=== PATIENT | female | born 1995 | race African-American/Black ===

== ENCOUNTER 2020-10-29 14:57 | Inpatient (IN) | payer OTHER ==
[~2020-10-29] VITALS: Ht 152.4 cm; Wt 81.6 kg
[~2020-10-29 14:57] MED LIST: ZOFRAN4 MG PO
--- NOTE | 2020-10-29 19:16 | NUR ---
SWABBED BOTH NARES FOR RAPID COVID TEST. FULL PPE DONNED
[2020-10-29] MEDS ORDERED: PRENATAL VITAM1 EAC2 PO (20:45)
--- NOTE | 2020-10-30 02:44 | PR ---
[facility] [address] [facility] [place], [place] [address] Signed Progress Notes IP Datetime Report Generated by CPN: 10/30/2020 02:43 PROGRESS NOTES: [id number] Impression: Reassuring Heart Rate Other Impressions: slow progress Procedures: Artificial ROM; Sterile Vag Exam Plan: Continue Present Management VITAL SIGNS: [id number] Vital Signs: Reviewed; Within Normal Limits EXAM: [id number] Dilatation: 3.0 Effacement: 60 Station: -2 MEMBRANES: [id number] Comments: Progressing. Will continue with pit augmentation. status reassuring at this time FETUS A: [id number] FHR Baseline: 140 Variability: Moderate 6-25bpm Accelerations: 10X10 Decelerations: Variable FHR Category: Category II Presentation: Vertex Comments on Fetus A: multiple short variables FETUS B: [id number] Signing Physician: Cece Fields MD Copies: ~ *Electronically Signed* 10/30/20 0243 CECE FIELDS MD PATIENT NAME: FRANK BARRETO PROGRESS NOTE DATE OF : 89 PHYSICIAN: CECE FIELDS MD RPT #: [id number] REPORT IS CONFIDENTIAL AND NOT TO BE RELEASED WITHOUT AUTHORIZATION
--- NOTE | 2020-10-31 08:28 | PR ---
[facility] [address] [facility] [place], [place] [address] Signed PP Progress Notes Datetime Report Generated by CPN: 10/31/2020 08:28 SUBJECTIVE: [id number] Pain: Within Normal Limits Vital Signs: [id number] Vital Signs: Reviewed; Within Normal Limits EXAM: Ongoing Cardiovascular: Not Done Respiratory: Not Done Abdomen/Uterus: Abnormal Lochia: Normal Vulva/Perineum: Not Done Breasts: Not Done CVA Tenderness: Not Done Extremities: Normal Incision: Not Applicable Progress: Normal Exam Comments: Fundus firm, NT @ U. H/H 9.8/29.4, WBC 12, plat 162k IMPRESSION/PLAN/PROCEDURES: [id number] Impression: Normal Progression Plan: Discharge Procedures: None Progress Notes: Doing well. She desires D/C. Signing Physician: Cece Fields MD Copies: ~ *Electronically Signed* 10/31/20827 CECE FIELDS MD PATIENT NAME: FRANK BARRETO PROGRESS NOTE DATE OF : [birth year] PHYSICIAN: CECE FIELDS MD RPT #: [id number] REPORT IS CONFIDENTIAL AND NOT TO BE RELEASED WITHOUT AUTHORIZATION
== END 2020-10-31 10:38 | disposition home or self-care (01) | DRG 807 ==
LOC: FBCO 14:57 → FBC 18:40
PROVIDERS: ADMIT Obstetrics & Gynecology; ATTEND Obstetrics & Gynecology
PROC: 00HU33Z Insertion of Infusion Device into Spinal Canal, Percutaneous Approach (ICD-10-PCS; 2020-10-29)
PROC: 3E0R3BZ Introduction of Anesthetic Agent into Spinal Canal, Percutaneous Approach (ICD-10-PCS; 2020-10-29)
PROC: 10E0XZZ Delivery of Products of Conception, External Approach (ICD-10-PCS; principal; 2020-10-30)
PROC: 0UQMXZZ Repair Vulva, External Approach (ICD-10-PCS; 2020-10-30)
PROC: 10907ZC Drainage of Amniotic Fluid, Therapeutic from Products of Conception, Via Natural or Artificial Opening (ICD-10-PCS; 2020-10-30)
DX: O76 Abnormality in fetal heart rate and rhythm complicating labor and delivery (principal); Z37.0 Single live birth; O99.214 Obesity complicating childbirth; E66.9 Obesity, unspecified; O71.82 Other specified trauma to perineum and vulva; Z3A.38 38 weeks gestation of pregnancy; Z88.0 Allergy status to penicillin
CPT/HCPCS: 36415; 76818; 85027; A9270; C9803; J2590; J2795; J7121; U0003

== ENCOUNTER 2021-01-20 19:45 | Emergency (ER) | payer OTHER ==
[~2021-01-20] VITALS: Ht 152.4 cm; Wt 81.6 kg
[~2021-01-20 19:45] MED LIST changes: +PRENATAL VITAM1 EAC2 PO
== END 2021-01-20 20:43 | disposition home or self-care (01) ==
LOC: ED 19:45
DX: Z48.816 Encounter for surgical aftercare following surgery on the genitourinary system (principal); Z98.51 Tubal ligation status; Z88.0 Allergy status to penicillin
CPT/HCPCS: 99283

== ENCOUNTER 2021-07-26 10:02 | Emergency (ER) | payer OTHER ==
[~2021-07-26] VITALS: Ht 152.4 cm; Wt 78.0 kg
== END 2021-07-26 12:33 | disposition home or self-care (01) ==
LOC: ED 10:02
DX: R10.2 Pelvic and perineal pain (principal); Z88.0 Allergy status to penicillin
CPT/HCPCS: 76830; 76856; 80053; 81001; 84703; 85025; 96374; 99284-25; J1885

== ENCOUNTER 2022-03-06 05:14 | Emergency (ER) | payer OTHER ==
[~2022-03-06] VITALS: Ht 152.4 cm; Wt 78.0 kg
[2022-03-06] MEDS ORDERED: FLUOXETINE HCL20 MG PO (05:25)
== END 2022-03-06 06:50 | disposition home or self-care (01) ==
LOC: ED 05:14
DX: R10.9 Unspecified abdominal pain (principal); Z88.0 Allergy status to penicillin; Z79.899 Other long term (current) drug therapy
CPT/HCPCS: 36415; 80053; 81001; 83690; 83735; 84703; 85025; 99284

== ENCOUNTER 2022-04-13 10:58 | Emergency (ER) | payer OTHER ==
[~2022-04-13] VITALS: Ht 152.4 cm; Wt 78.0 kg
[~2022-04-13 10:58] MED LIST changes: +FLUOXETINE HCL20 MG PO
== END 2022-04-13 13:31 | disposition home or self-care (01) ==
LOC: ED 10:58
DX: H61.21 Impacted cerumen, right ear (principal); Z88.0 Allergy status to penicillin; Z79.899 Other long term (current) drug therapy
CPT/HCPCS: 69210; 99282-25

== ENCOUNTER 2022-08-09 15:33 | Emergency (ER) | payer OTHER ==
[~2022-08-09] VITALS: Ht 152.4 cm; Wt 79.8 kg
[2022-08-09] MEDS ORDERED: TYLOPHEN500 MG PO (16:30)
[2022-08-09] MEDS ORDERED: BACTRIM DS TAB1 EACH PO (19:35)
[2022-08-09] MEDS ORDERED: PYRIDIUM200 MG PO (19:35)
[2022-08-10] MEDS ORDERED: ONDANSETRON ODT4 MG PO (17:38)
== END 2022-08-09 20:47 | disposition home or self-care (01) ==
LOC: ED 15:33
DX: N12 Tubulo-interstitial nephritis, not specified as acute or chronic (principal); Z88.0 Allergy status to penicillin
CPT/HCPCS: 36415; 71045; 74177; 80053; 81001; 83605; 84703; 85025; 87040; 87088; 87186; 96361; 96365; 96375; 99284-25; J0696; J1885; J2270; J2405; J7030; Q9967

== ENCOUNTER 2022-08-10 12:18 | Emergency (ER) | payer OTHER ==
[~2022-08-10] VITALS: Ht 152.4 cm; Wt 79.6 kg
[~2022-08-10 12:18] MED LIST changes: +BACTRIM DS TAB1 EACH PO; +PYRIDIUM200 MG PO; +TYLOPHEN500 MG PO
--- OUTSIDE RECORDS SUMMARY | 2022-08-10 12:26 | XMS ---
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 - 2 Visits in 30 Days CARE PROVIDERS LEIGHANN VICTORIA Physician 08/08/2021-Current PHONE: Unknown Jocelyne has no Care Guidelines for this patient. Javier VISIT COUNT (12 MO.) 4 [facility] TOTAL 4 NOTE: Visits indicate total known visits. 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
[2022-08-10] MEDS ORDERED: ONDANSETRON ODT4 MG PO (17:38)
== END 2022-08-10 17:50 | disposition home or self-care (01) ==
LOC: ED 12:18
DX: N12 Tubulo-interstitial nephritis, not specified as acute or chronic (principal); R11.2 Nausea with vomiting, unspecified; Z88.0 Allergy status to penicillin; Z79.899 Other long term (current) drug therapy
CPT/HCPCS: 36415; 80053; 83605; 85025; 85060; 96361; 96374; 96375; 99284-25; J0696; J1885; J2405; J7030

== ENCOUNTER 2022-08-12 17:33 | Emergency (ER) | payer OTHER ==
[~2022-08-12] VITALS: Ht 152.4 cm; Wt 79.4 kg
[~2022-08-12 17:33] MED LIST changes: +ONDANSETRON ODT4 MG PO
--- OUTSIDE RECORDS SUMMARY | 2022-08-12 17:40 | XMS ---
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 Javier VISIT COUNT (12 MO.) 5 [facility] TOTAL 5 NOTE: Visits indicate total known visits. ED/UCC VISIT TRACKING (12 MO.) 08/12/2022 17:33 [facility] TYPE: Emergency COMPLAINT: - SHORTNESS OF BREATH 08/10/2022 12:19 [facility] TYPE: Emergency COMPLAINT: - VOMITING 08/09/2022 15:34 [facility] TYPE: Emergency COMPLAINT: - ABDOMINAL PAIN 04/13/2022 10:59 [facility] TYPE: Emergency COMPLAINT: - EAR PROBLEM DIAGNOSES: - Impacted cerumen, right ear - Otalgia, right ear - Other alf (current) drug therapy - Allergy status to penicillin 03/06/2022 05:15 [facility] [place] TYPE: Emergency COMPLAINT: - ABD PAIN DIAGNOSES: - Allergy status to penicillin - Unspecified abdominal pain - 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
== END 2022-08-12 20:12 | disposition left against medical advice (07) ==
LOC: ED 17:33
DX: Z53.21 Procedure and treatment not carried out due to patient leaving prior to being seen by health care provider (principal)
CPT/HCPCS: 99281

== ENCOUNTER 2022-10-18 15:12 | Emergency (ER) | payer OTHER ==
[~2022-10-18] VITALS: Ht 152.4 cm; Wt 79.4 kg
[2022-10-18] MEDS ORDERED: FLUOXETINE HCL20 MG PO (18:04)
[2022-10-18] MEDS ORDERED: ONDANSETRON ODT4 MG PO (18:10)
== END 2022-10-18 18:26 | disposition home or self-care (01) ==
LOC: ED 15:12
DX: J10.1 Influenza due to other identified influenza virus with other respiratory manifestations (principal); Z20.822 Contact with and (suspected) exposure to COVID-19; Z88.0 Allergy status to penicillin; Z79.899 Other long term (current) drug therapy
CPT/HCPCS: 87502; 99283; U0003

== ENCOUNTER 2023-05-19 15:39 | Emergency (ER) | payer OTHER ==
[~2023-05-19] VITALS: Ht 152.4 cm; Wt 70.3 kg
--- OUTSIDE RECORDS SUMMARY | ~2023-05-19 | XMS | Continuity of Care Document ---
Demographics + + + | Address | [address] | | | [place] [address] | + + + | Preferred Language | Unknown | + + + | Marital Status | | + + + | Anabaptist Affiliation | Unknown | + + + | Race | Unknown | + + + | Ethnic Group | Not or | + + + Author + + + | Author | [facility] | + + + | Organization | [facility] | + + + | Address | [address] | | | [place] [address] | + + + | Phone | | + + + Care Team Providers + + + + | Care Belt Cleaner Name | Role | Phone | + + + + Unavailable | Unavailable | + + + + Unavailable | Unavailable | + + + + Allergies and Intolerances + + + + + | date | description | facility | type | + + + + + | (no date) | Amoxicillin | [facility] (unknown[facility] | | + + + + + | (no date) | Amoxicillin | [facility] (unknown[facility] | | + + + + + | (no date) | Amoxicillin | [facility] (unknown) [facility] | | | [facility] | | + + + + + Encounters No information. Functional Status No information. Immunizations No information. Medications + + + + | date | description | facility | + + + + | 2022-08-10 00:00 | ONDANSETRON | [facility] | + + + + | 2022-10-18 00:00 | ONDANSETRON | [facility] | + + + + | 2019-12-15 00:00 | ONDANSETRON HCL | [facility] | + + + + | 2022-08-09 00:00 | PHENAZOPYRIDINE HCL | [facility] | + + + + | 2022-08-09 00:00 | ACETAMINOPHEN | [facility] | + + + + | 2022-08-10 00:00 | ACETAMINOPHEN | [facility] | + + + + | 2022-08-12 00:00 | ACETAMINOPHEN | [facility] | + + + + | 2022-08-09 00:00 | FLUOXETINE HCL | [facility] | + + + + | 2022-08-10 00:00 | FLUOXETINE HCL | [facility] | + + + + | 2022-08-12 00:00 | FLUOXETINE HCL | [facility] | + + + + | 2022-10-19 00:00 | FLUOXETINE HCL | [facility] | + + + + | 2022-11-18 00:00 | FLUOXETINE HCL | [facility] | + + + + | 2022-11-18 00:00 | ONDANSETRON | [facility] | + + + + | 2022-11-18 00:00 | NITROFURANTOIN MONOHYD | [facility] | | | MACROCR | | + + + + | 2022-08-09 00:00 | | [facility] | | | SULFAMETHOXAZOLE/TRIMETHOPR | | | | IM DS | | + + + + Problems + + + + | date | description | facility | + + + + | 2019-12-15 00:00 | Gastroenteritis | [facility] | + + + + | 2019-12-15 00:00 | Abdominal pain | [facility] | + + + + | 2021-01-20 00:00 | Encounter for | [facility] | | | postoperative wound check | | + + + + | 2021-07-26 00:00 | Acute pelvic pain | [facility] | + + + + | 2021-08-07 00:00 | Patient left without being | [facility] | | | seen | | + + + + | 2022-04-13 00:00 | Impacted cerumen | [facility] | + + + + | 2022-08-09 00:00 | Pyelonephritis | [facility] | + + + + | 2022-10-18 00:00 | Influenza due to influenza | [facility] | | | virus, type A, human | | + + + + | 2022-11-18 00:00 | Urinary tract infection | [facility] | + + + + Procedures No information. Results/Labs +--------+--------+ + +---------+--------+ + | test | date | author | facility | value | unit | | | | | | | | | interpreta | | | | | | | | tion | +--------+--------+ + +---------+--------+ + + + | Result panel 1 | + + + + + + +---------+ + + | (unknown) | (no date) | (unknown) | [facility] | (no | (units | (unknown) | | | [facility] | [facility] | | | | + + + + +---------+ + + + + | Result panel 2 | + + + + + + +---------+ + + | (unknown) | (no date) | (unknown) | [facility] | (no | (units | (unknown) | | | | [facility] | value) | [facility]) | | | [facility] | | | | + + + + +---------+ + + + + | Result panel 3 | + + + + + + +---------+ + + | (unknown) | (no date) | (unknown) | [facility] | (no | (units | (unknown) | | | | [facility] | value) | unknown) | | | | [facility] | | | | + + + + +---------+ + + + + | Result panel 4 | + + + + + + +---------+ + + | (unknown) | (no date) | (unknown) | [facility] | (no | (units | (unknown) | | | | [facility] | value) | unknown) | | | [facility] | | | | + + + + +---------+ + + + + | Result panel 5 | + + + + + + +---------+ + + | (unknown) | (no date) | (unknown) | [facility] | (no | (units | (unknown) | | | | [facility] | value) | unknown) | | | [facility] | | | | + + + + +---------+ + + + + | Result panel 6 | + + + + + + +---------+ + + | (unknown) | (no date) | (unknown) | [facility] | (no | (units | (unknown) | | | | [facility] | value) | unknown) | | | [facility] | | | | + + + + +---------+ + + + + | Result panel 7 | + + + + + + +---------+ + + | (unknown) | (no date) | (unknown) | [facility] | (no | (units | (unknown) | | | | [facility] | value) | [facility]) | | [facility] | | | | + + + + +---------+ + + + + | Result panel 8 | + + + + + + +---------+ + + | (unknown) | (no date) | (unknown) | [facility] | (no | (units | (unknown) | | | | [facility] | value) | [facility]) | | [facility] | | | | + + + + +---------+ + + + + | Result panel 9 | + + + + + + +---------+ + + | (unknown) | (no date) | (unknown) | [facility] | (no | (units | (unknown) | | [facility] | [facility] value) | [facility]) | | | [facility] | | | | + + + + +---------+ + + + + | Result panel 10 | + + + + + + +---------+ + + | (unknown) | (no date) | (unknown) | [facility] | (no | (units | (unknown) | | | | [facility] | value) | [facility]) | | | [facility] | | | | + + + + +---------+ + + + + | Result panel 11 | + + + + + + +---------+ + + | (unknown) | (no date) | (unknown) | [facility] | (no | (units | (unknown) | | | | [facility] | value) | unknown) | | | [facility] | | | | + + + + +---------+ + + + + | Result panel 12 | + + + + + + +---------+ + + | (unknown) | (no date) | (unknown) | [facility] | (no | (units | (unknown) | | | | [facility] value) | unknown) | | | [facility] | | | | + + + + +---------+ + + + + | Result panel 13 | + + + + + + +---------+ + + | (unknown) | (no date) | (unknown) | [facility] | (no | (units | (unknown) | | | | [facility] value) | [facility]) | | | [facility] | | | | + + + + +---------+ + + + + | Result panel 14 | + + + + + + +---------+ + + | (unknown) | (no date) | (unknown) | [facility] | (no | (units | (unknown) | | [facility] | [facility] value) | [facility]) | | | [facility] | | | | + + + + +---------+ + + + + | Result panel 15 | + + + + + + +---------+ + + | (unknown) | (no date) | (unknown) | [facility] | (no | (units | (unknown) | | [facility] | [facility] | value) | [facility]) | | | [facility] | | | | + + + + +---------+ + + + + | Result panel 16 | + + + + + + +---------+ + + | (unknown) | (no date) | (unknown) | [facility] | (no | (units | (unknown) | | | | [facility] | value) | unknown) | | | [facility] | | | | + + + + +---------+ + + + + | Result panel 17 | + + + + + + +---------+ + + | (unknown) | (no date) | (unknown) | [facility] | (no | (units | (unknown) | | [facility] | [facility] value) | [facility]) | | | [facility] | | | | + + + + +---------+ + + + + | Result panel 18 | + + + + + + +---------+ + + | (unknown) | (no date) | (unknown) | [facility] | (no | (units | (unknown) | | | | [facility] | value) | [facility]) | | | [facility] | | | | + + + + +---------+ + + + + | Result panel 19 | + + + + + + +---------+ + + | (unknown) | (no date) | (unknown) | [facility] | (no | (units | (unknown) | | | | [facility] value) | [facility]) | | [facility] | | | | + + + + +---------+ + + + + | Result panel 20 | + + + + + + +---------+ + + | (unknown) | (no date) | (unknown) | [facility] | (no | (units | (unknown) | | [facility] | [facility] value) | [facility]) | | | [facility] | | | | + + + + +---------+ + + + + | Result panel 21 | + + + + + + +---------+ + + | (unknown) | (no date) | (unknown) | [facility] | (no | (units | (unknown) | | | | [facility] value) | [facility]) | | | [facility] | | | | + + + + +---------+ + + + + | Result panel 22 | + + + + + + +---------+ + + | (unknown) | (no date) | (unknown) | [facility] | (no | (units | (unknown) | | | | [facility] | value) | [facility]) | | | [facility] | | | | + + + + +---------+ + + + + | Result panel 23 | + + + + + + +---------+ + + | (unknown) | (no date) | (unknown) | [facility] | (no | (units | (unknown) | | | | [facility] | value) | unknown) | | | | [facility] | | | | + + + + +---------+ + + + + | Result panel 24 | + + + + + + +---------+ + + | (unknown) | (no date) | (unknown) | [facility] | (no | (units | (unknown) | | | | [facility] value) | [facility]) | | | | [facility] | | | | + + + + +---------+ + + + + | Result panel 25 | + + + + + + +---------+ + + | (unknown) | (no date) | (unknown) | [facility] | (no | (units | (unknown) | | | | [facility] | value) | unknown) | | | [facility] | | | | + + + + +---------+ + + + + | Result panel 26 | + + + + + + +---------+ + + | (unknown) | (no date) | (unknown) | [facility] | (no | (units | (unknown) | | | | [facility] value) | [facility]) | | [facility] | | | | + + + + +---------+ + + + + | Result panel 27 | + + + + + + +---------+ + + | (unknown) | (no date) | (unknown) | [facility] | (no | (units | (unknown) | | | | [facility] value) | unknown) | | | [facility] | | | | + + + + +---------+ + + + + | Result panel 28 | + + + + + + +---------+ + + | (unknown) | (no date) | (unknown) | [facility] | (no | (units | (unknown) | | [facility] | [facility] value) | [facility]) | | | [facility] | | | | + + + + +---------+ + + + + | Result panel 29 | + + + + + + +---------+ + + | (unknown) | (no date) | (unknown) | [facility] | (no | (units | (unknown) | | | | [facility] value) | unknown) | | | [facility] | | | | + + + + +---------+ + + + + | Result panel 30 | + + + + + + +---------+ + + | (unknown) | (no date) | (unknown) | [facility] | (no | (units | (unknown) | | | | [facility] value) | [facility]) | | | [facility] | | | | + + + + +---------+ + + + + | Result panel 31 | + + + + + + +---------+ + + | (unknown) | (no date) | (unknown) | [facility] | (no | (units | (unknown) | | | | [facility] | value) | [facility]) | | | [facility] | | | | + + + + +---------+ + + + + | Result panel 32 | + + + + + + +---------+ + + | (unknown) | (no date) | (unknown) | [facility] | (no | (units | (unknown) | | | | [facility] | value) | unknown) | | | | [facility] | | | | + + + + +---------+ + + + + | Result panel 33 | + + + + + + +---------+ + + | (unknown) | (no date) | (unknown) | [facility] | (no | (units | (unknown) | | | | [facility] value) | [facility]) | | | [facility] | | | | + + + + +---------+ + + + + | Result panel 34 | + + + + + + +---------+ + + | (unknown) | (no date) | (unknown) | [facility] | (no | (units | (unknown) | | | | [facility] value) | unknown) | | | | [facility] | | | | + + + + +---------+ + + + + | Result panel 35 | + + + + + + +---------+ + + | (unknown) | (no date) | (unknown) | [facility] | (no | (units | (unknown) | | | | [facility] | value) | unknown) | | | [facility] | | | | + + + + +---------+ + + + + | Result panel 36 | + + + + + + +---------+ + + | (unknown) | (no date) | (unknown) | [facility] | (no | (units | (unknown) | | | | [facility] | value) | unknown) | | | | [facility] | | | | + + + + +---------+ + + + + | Result panel 37 | + + + + + + +---------+ + + | (unknown) | (no date) | (unknown) | [facility] | (no | (units | (unknown) | | | | [facility] | value) | unknown) | | | | [facility] | | | | + + + + +---------+ + + + + | Result panel 38 | + + + + + + +---------+ + + | (unknown) | (no date) | (unknown) | [facility] | (no | (units | (unknown) | | | | [facility] | value) | unknown) | | | | [facility] | | | | + + + + +---------+ + + + + | Result panel 39 | + + + + + + +---------+ + + | (unknown) | (no date) | (unknown) | [facility] | (no | (units | (unknown) | | | | [facility] | value) | unknown) | | | | [facility] | | | | + + + + +---------+ + + + + | Result panel 40 | + + + + + + +---------+ + + | (unknown) | (no date) | (unknown) | [facility] | (no | (units | (unknown) | | | | [facility] value) | [facility]) | | | [facility] | | | | + + + + +---------+ + + + + | Result panel 41 | + + + + + + +---------+ + + | (unknown) | (no date) | (unknown) | [facility] | (no | (units | (unknown) | | | [facility] value) | unknown) | | | | [facility] | | | | + + + + +---------+ + + + + | Result panel 42 | + + + + + + +---------+ + + | (unknown) | (no date) | (unknown) | [facility] | (no | (units | (unknown) | | | [facility] value) | [facility]) | | | [facility] | | | | + + + + +---------+ + + + + | Result panel 43 | + + + + + + +---------+ + + | (unknown) | (no date) | (unknown) | [facility] | (no | (units | (unknown) | | | | [facility] | value) | unknown) | | | [facility] | | | | + + + + +---------+ + + + + | Result panel 44 | + + + + + + +---------+ + + | (unknown) | (no date) | (unknown) | [facility] | (no | (units | (unknown) | | | | [facility] | value) | unknown) | | | | [facility] | | | | + + + + +---------+ + + + + | Result panel 45 | + + + + + + +---------+ + + | (unknown) | (no date) | (unknown) | [facility] | (no | (units | (unknown) | | | | [facility] | value) | unknown) | | | | [facility] | | | | + + + + +---------+ + + + + | Result panel 46 | + + + + + + +---------+ + + | (unknown) | (no date) | (unknown) | [facility] | (no | (units | (unknown) | | | | [facility] | value) | unknown) | | | | [facility] | | | | + + + + +---------+ + + + + | Result panel 47 | + + + + + + +---------+ + + | (unknown) | (no date) | (unknown) | [facility] | (no | (units | (unknown) | | | | [facility] | value) | unknown) | | | | [facility] | | | | + + + + +---------+ + + + + | Result panel 48 | + + + + + + +---------+ + + | (unknown) | (no date) | (unknown) | [facility] | (no | (units | (unknown) | | | | [facility] | value) | unknown) | | | | [facility] | | | | + + + + +---------+ + + + + | Result panel 49 | + + + + + + +---------+ + + | (unknown) | (no date) | (unknown) | [facility] | (no | (units | (unknown) | | | | [facility] | value) | [facility]) | | [facility] | | | | + + + + +---------+ + + + + | Result panel 50 | + + + + + + +---------+ + + | (unknown) | (no date) | (unknown) | [facility] | (no | (units | (unknown) | | | | [facility] value) | [facility]) | | | [facility] | | | | + + + + +---------+ + + + + | Result panel 51 | + + + + + + +---------+ + + | (unknown) | (no date) | (unknown) | [facility] | (no | (units | (unknown) | | | | [facility] value) | [facility]) | | | [facility] | | | | + + + + +---------+ + + + + | Result panel 52 | + + + + + + +---------+ + + | (unknown) | (no date) | (unknown) | [facility] | (no | (units | (unknown) | | | | [facility] value) | [facility]) | [facility] | | | | + + + + +---------+ + + + + | Result panel 53 | + + + + + + +---------+ + + | (unknown) | (no date) | (unknown) | [facility] | (no | (units | (unknown) | | | | [facility] value) | [facility]) | [facility] | | | | + + + + +---------+ + + + + | Result panel 54 | + + + + + + +---------+ + + | (unknown) | (no date) | (unknown) | [facility] | (no | (units | (unknown) | | | [facility] value) | [facility]) | | | [facility] | | | | + + + + +---------+ + + + + | Result panel 55 | + + + + + + +---------+ + + | (unknown) | (no date) | (unknown) | [facility] | (no | (units | (unknown) | | | | [facility] value) | [facility]) | | [facility] | | | | + + + + +---------+ + + + + | Result panel 56 | + + + + + + +---------+ + + | (unknown) | (no date) | (unknown) | [facility] | (no | (units | (unknown) | | | [facility] value) | [facility]) | | [facility] | | | | + + + + +---------+ + + + + | Result panel 57 | + + + + + + +---------+ + + | (unknown) | (no date) | (unknown) | [facility] | (no | (units | (unknown) | [facility] value) | [facility]) | | [facility] | | | | + + + + +---------+ + + + + | Result panel 58 | + + + + + + +---------+ + + | (unknown) | (no date) | (unknown) | [facility] | (no | (units | (unknown) | | | [facility] value) | [facility]) | | [facility] | | | | + + + + +---------+ + + + + | Result panel 59 | + + + + + + +---------+ + + | (unknown) | (no date) | (unknown) | [facility] | (no | (units | (unknown) | | | [facility] value) | [facility]) | | | [facility] | | | | + + + + +---------+ + + + + | Result panel 60 | + + + + + + +---------+ + + | (unknown) | (no date) | (unknown) | [facility] | (no | (units | (unknown) | | [facility] value) | [facility]) | | | [facility] | | | | + + + + +---------+ + + + + | Result panel 61 | + + + + + + +---------+ + + | (unknown) | (no date) | (unknown) | [facility] | (no | (units | (unknown) | | | [facility] value) | [facility]) | | [facility] | | | | + + + + +---------+ + + + + | Result panel 62 | + + + + + + +---------+ + + | (unknown) | (no date) | (unknown) | [facility] | (no | (units | (unknown) | | | [facility] value) | [facility]) | | | | [facility] | | | | + + + + +---------+ + + + + | Result panel 63 | + + + + + + +---------+ + + | (unknown) | (no date) | (unknown) | [facility] | (no | (units | (unknown) | | | [facility] value) | [facility]) | | [facility] | [facility] | | | | + + + + +---------+ + + + + | Result panel 64 | + + + + + + +---------+ + + | (unknown) | (no date) | (unknown) | [facility] | (no | (units | (unknown) | | | [facility] | value) | unknown) | | | | [facility] | | | | + + + + +---------+ + + + + | Result panel 65 | + + + + + + +---------+ + + | (unknown) | (no date) | (unknown) | [facility] | (no | (units | (unknown) | | | | [facility] | value) | unknown) | | | | [facility] | | | | + + + + +---------+ + + + + | Result panel 66 | + + + + + + +---------+ + + | (unknown) | (no date) | (unknown) | [facility] | (no | (units | (unknown) | | [facility] value) | unknown) | | | | [facility] | | | | + + + + +---------+ + + + + | Result panel 67 | + + + + + + +---------+ + + | (unknown) | (no date) | (unknown) | [facility] | (no | (units | (unknown) | | | | [facility] | value) | unknown) | | | | [facility] | | | | + + + + +---------+ + + + + | Result panel 68 | + + + + + + +---------+ + + | (unknown) | (no date) | (unknown) | [facility] | (no | (units | (unknown) | | | | [facility] | value) | unknown) | | | | [facility] | | | | + + + + +---------+ + + + + | Result panel 69 | + + + + + + +---------+ + + | (unknown) | (no date) | (unknown) | [facility] | (no | (units | (unknown) | | [facility] | [facility] | value) | unknown) | | [facility] | [facility] | | | | + + + + +---------+ + + + + | Result panel 70 | + + + + + + +---------+ + + | (unknown) | (no date) | (unknown) | [facility] | (no | (units | (unknown) | | | [facility] | value) | unknown) | | | | [facility] | | | | + + + + +---------+ + + + + | Result panel 71 | + + + + + + +---------+ + + | (unknown) | (no date) | (unknown) | [facility] | (no | (units | (unknown) | | [facility] | value) | unknown) | | [facility] | [facility] | | | | + + + + +---------+ + + + + | Result panel 72 | + + + + + + +---------+ + + | (unknown) | (no date) | (unknown) | [facility] | (no | (units | (unknown) | | | [facility] value) | unknown) | | | | [facility] | | | | + + + + +---------+ + + + + | Result panel 73 | + + + + + + +---------+ + + | (unknown) | (no date) | (unknown) | [facility] | (no | (units | (unknown) | | | [facility] value) | unknown) | | [facility] | [facility] | | | | + + + + +---------+ + + + + | Result panel 74 | + + + + + + +---------+ + + | (unknown) | (no date) | (unknown) | [facility] | (no | (units | (unknown) | | | [facility] | value) | unknown) | | | | | [facility] | | | | + + + + +---------+ + + + + | Result panel 75 | + + + + + + +---------+ + + | (unknown) | (no date) | (unknown) | [facility] | (no | (units | (unknown) | | | | [facility] | value) | unknown) | | | | | [facility] | | | | + + + + +---------+ + + + + | Result panel 76 | + + + + + + +---------+ + + | (unknown) | (no date) | (unknown) | [facility] | (no | (units | (unknown) | | | [facility] | value) | unknown) | | | | [facility] | | | | + + + + +---------+ + + + + | Result panel 77 | + + + + + + +---------+ + + | (unknown) | (no date) | (unknown) | [facility] | (no | (units | (unknown) | | | [facility] value) | unknown) | | | | [facility] | | | | + + + + +---------+ + + + + | Result panel 78 | + + + + + + +---------+ + + | (unknown) | (no date) | (unknown) | [facility] | (no | (units | (unknown) | | | [facility] value) | unknown) | | | | [facility] | | | | + + + + +---------+ + + + + | Result panel 79 | + + + + + + +---------+ + + | (unknown) | (no date) | (unknown) | [facility] | (no | (units | (unknown) | | | [facility] | value) | unknown) | [facility] | | [facility] | | | | + + + + +---------+ + + + + | Result panel 80 | + + + + + + +---------+ + + | (unknown) | (no date) | (unknown) | [facility] | (no | (units | (unknown) | | | [facility] value) | unknown) | | | | [facility] | | | | + + + + +---------+ + + + + | Result panel 81 | + + + + + + +---------+ + + | (unknown) | (no date) | (unknown) | [facility] | (no | (units | (unknown) | | | [facility] value) | [facility]) | | | | [facility] | | | | + + + + +---------+ + + + + | Result panel 82 | + + + + + + +---------+ + + | (unknown) | (no date) | (unknown) | [facility] | (no | (units | (unknown) | | | [facility] value) | [facility]) | | [facility] | [facility] | | | | + + + + +---------+ + + + + | Result panel 83 | + + + + + + +---------+ + + | (unknown) | (no date) | (unknown) | [facility] | (no | (units | (unknown) | | | [facility] value) | [facility]) | | | | [facility] | | | | + + + + +---------+ + + + + | Result panel 84 | + + + + + + +---------+ + + | (unknown) | (no date) | (unknown) | [facility] | (no | (units | (unknown) | | | [facility] value) | [facility]) | | | | [facility] | | | | + + + + +---------+ + + + + | Result panel 85 | + + + + + + +---------+ + + | (unknown) | (no date) | (unknown) | [facility] | (no | (units | (unknown) | | | [facility] value) | [facility]) | | | | [facility] | | | | + + + + +---------+ + + + + | Result panel 86 | + + + + + + +---------+ + + | (unknown) | (no date) | (unknown) | [facility] | (no | (units | (unknown) | | | [facility] | value) | unknown) | | | | [facility] | | | | + + + + +---------+ + + + + | Result panel 87 | + + + + + + +---------+ + + | (unknown) | (no date) | (unknown) | [facility] | (no | (units | (unknown) | | | [facility] value) | unknown) | | | | | | [facility] | | | | + + + + +---------+ + + + + | Result panel 88 | + + + + + + +---------+ + + | (unknown) | (no date) | (unknown) | [facility] | (no | (units | (unknown) | | | | | [facility] | value) | unknown) | | | | | | [facility] | | | | + + + + +---------+ + + + + | Result panel 89 | + + + + + + +---------+ + + | (unknown) | (no date) | (unknown) | [facility] | (no | (units | (unknown) | | | | | [facility] | value) | unknown) | | | | | | [facility] | | | | + + + + +---------+ + + + + | Result panel 90 | + + + + + + +---------+ + + | (unknown) | (no date) | (unknown) | [facility] | (no | (units | (unknown) | | | | | [facility] | value) | unknown) | | | | | | [facility] | | | | + + + + +---------+ + + + + | Result panel 91 | + + + + + + +---------+ + + | (unknown) | (no date) | (unknown) | [facility] | (no | (units | (unknown) | | | | | [facility] | value) | unknown) | | | | | | [facility] | | | | + + + + +---------+ + + + + | Result panel 92 | + + + + + + +---------+ + + | (unknown) | (no date) | (unknown) | [facility] | (no | (units | (unknown) | | | | | [facility] | value) | unknown) | | | | | | [facility] | | | | + + + + +---------+ + + + + | Result panel 93 | + + + + + + +---------+ + + | (unknown) | (no date) | (unknown) | [facility] | (no | (units | (unknown) | | | | | [facility] | value) | unknown) | | | | | | [facility] | | | | + + + + +---------+ + + + + | Result panel 94 | + + + + + + +---------+ + + | (unknown) | (no date) | (unknown) | [facility] | (no | (units | (unknown) | | | | | [facility] | value) | unknown) | | | | | | [facility] | | | | + + + + +---------+ + + + + | Result panel 95 | + + + + + + +---------+ + + | (unknown) | (no date) | (unknown) | [facility] | (no | (units | (unknown) | | | | | [facility] | value) | unknown) | | | | | [facility] | | | | + + + + +---------+ + + + + | Result panel 96 | + + + + + + +---------+ + + | (unknown) | (no date) | (unknown) | [facility] | (no | (units | (unknown) | | | | | [facility] | value) | unknown) | | | | | [facility] | | | | + + + + +---------+ + + + + | Result panel 97 | + + + + + + +---------+ + + | (unknown) | (no date) | (unknown) | [facility] | (no | (units | (unknown) | | | | | [facility] | value) | unknown) | | | | [facility] | | | | + + + + +---------+ + + + + | Result panel 98 | + + + + + + +---------+ + + | (unknown) | (no date) | (unknown) | [facility] | (no | (units | (unknown) | | | | | [facility] | value) | unknown) | | | | [facility] | | | | + + + + +---------+ + + + + | Result panel 99 | + + + + + + +---------+ + + | (unknown) | (no date) | (unknown) | [facility] | (no | (units | (unknown) | | | | | [facility] | value) | unknown) | | | | [facility] | | | | + + + + +---------+ + + + + | Result panel 100 | + + + + + + +---------+ + + | (unknown) | (no date) | (unknown) | [facility] | (no | (units | (unknown) | | | | | [facility] | value) | unknown) | | | | [facility] | | | | + + + + +---------+ + + + + | Result panel 101 | + + + + + + +---------+ + + | (unknown) | (no date) | (unknown) | [facility] | (no | (units | (unknown) | | | | | [facility] | value) | unknown) | | | | [facility] | | | | + + + + +---------+ + + + + | Result panel 102 | + + + + + + +---------+ + + | (unknown) | (no date) | (unknown) | [facility] | (no | (units | (unknown) | | | | | [facility] | value) | unknown) | | | | [facility] | | | | + + + + +---------+ + + + + | Result panel 103 | + + + + + + +---------+ + + | (unknown) | (no date) | (unknown) | [facility] | (no | (units | (unknown) | | | | | [facility] | value) | unknown) | | | | [facility] | | | | + + + + +---------+ + + + + | Result panel 104 | + + + + + + +---------+ + + | (unknown) | (no date) | (unknown) | [facility] | (no | (units | (unknown) | | | | | [facility] | value) | unknown) | | | | [facility] | | | | + + + + +---------+ + + + + | Result panel 105 | + + + + + + +---------+ + + | (unknown) | (no date) | (unknown) | [facility] | (no | (units | (unknown) | | | | | [facility] | value) | unknown) | | | | [facility] | | | | + + + + +---------+ + + + + | Result panel 106 | + + + + + + +---------+ + + | (unknown) | (no date) | (unknown) | [facility] | (no | (units | (unknown) | | | | | [facility] | value) | unknown) | | | | [facility] | | | | + + + + +---------+ + + + + | Result panel 107 | + + + + + + +---------+ + + | (unknown) | (no date) | (unknown) | [facility] | (no | (units | (unknown) | | | | | [facility] | value) | unknown) | | | | [facility] | | | | + + + + +---------+ + + + + | Result panel 108 | + + + + + + +---------+ + + | (unknown) | (no date) | (unknown) | [facility] | (no | (units | (unknown) | | | | | [facility] | value) | unknown) | | | | [facility] | | | | + + + + +---------+ + + + + | Result panel 109 | + + + + + + +---------+ + + | (unknown) | (no date) | (unknown) | [facility] | (no | (units | (unknown) | | | | | [facility] | value) | unknown) | | | | [facility] | | | | + + + + +---------+ + + + + | Result panel 110 | + + + + + + +---------+ + + | (unknown) | (no date) | (unknown) | [facility] | (no | (units | (unknown) | | | | | [facility] | value) | unknown) | | | | [facility] | | | | + + + + +---------+ + + + + | Result panel 111 | + + + + + + +---------+ + + | (unknown) | (no date) | (unknown) | [facility] | (no | (units | (unknown) | | | | | [facility] | value) | unknown) | | | | [facility] | | | | + + + + +---------+ + + + + | Result panel 112 | + + + + + + +---------+ + + | (unknown) | (no date) | (unknown) | [facility] | (no | (units | (unknown) | | | | | [facility] | value) | unknown) | | | | [facility] | | | | + + + + +---------+ + + + + | Result panel 113 | + + + + + + +---------+ + + | (unknown) | (no date) | (unknown) | [facility] | (no | (units | (unknown) | | | | | [facility] | value) | unknown) | | | | [facility] | | | | + + + + +---------+ + + + + | Result panel 114 | + + + + + + +---------+ + + | (unknown) | (no date) | (unknown) | [facility] | (no | (units | (unknown) | | | | | [facility] | value) | unknown) | | | | [facility] | | | | + + + + +---------+ + + + + | Result panel 115 | + + + + + + +---------+ + + | (unknown) | (no date) | (unknown) | [facility] | (no | (units | (unknown) | | | | | [facility] | value) | unknown) | | | | [facility] | | | | + + + + +---------+ + + + + | Result panel 116 | + + + + + + +---------+ + + | (unknown) | (no date) | (unknown) | [facility] | (no | (units | (unknown) | | | | | [facility] | value) | unknown) | | | | [facility] | | | | + + + + +---------+ + + + + | Result panel 117 | + + + + + + +---------+ + + | (unknown) | (no date) | (unknown) | [facility] | (no | (units | (unknown) | | | | | [facility] | value) | unknown) | | | | [facility] | | | | + + + + +---------+ + + + + | Result panel 118 | + + + + + + +---------+ + + | (unknown) | (no date) | (unknown) | [facility] | (no | (units | (unknown) | | | | | [facility] | value) | unknown) | | | | [facility] | | | | + + + + +---------+ + + + + | Result panel 119 | + + + + + + +---------+ + + | (unknown) | (no date) | (unknown) | [facility] | (no | (units | (unknown) | | | | | [facility] | value) | unknown) | | | | [facility] | | | | + + + + +---------+ + + + + | Result panel 120 | + + + + + + +---------+ + + | (unknown) | (no date) | (unknown) | [facility] | (no | (units | (unknown) | | | | | [facility] | value) | unknown) | | | | [facility] | | | | + + + + +---------+ + + + + | Result panel 121 | + + + + + + +---------+ + + | (unknown) | (no date) | (unknown) | [facility] | (no | (units | (unknown) | | | | | [facility] | value) | unknown) | | | | [facility] | | | | + + + + +---------+ + + + + | Result panel 122 | + + + + + + +---------+ + + | (unknown) | (no date) | (unknown) | [facility] | (no | (units | (unknown) | | | | | [facility] | value) | unknown) | | | | [facility] | | | | + + + + +---------+ + + + + | Result panel 123 | + + + + + + +---------+ + + | (unknown) | (no date) | (unknown) | [facility] | (no | (units | (unknown) | | | | | [facility] | value) | unknown) | | | | [facility] | | | | + + + + +---------+ + + + + | Result panel 124 | + + + + + + +---------+ + + | (unknown) | (no date) | (unknown) | [facility] | (no | (units | (unknown) | | | | | [facility] | value) | unknown) | | | | [facility] | | | | + + + + +---------+ + + + + | Result panel 125 | + + + + + + +---------+ + + | (unknown) | (no date) | (unknown) | [facility] | (no | (units | (unknown) | | | | | [facility] | value) | unknown) | | | | [facility] | | | | + + + + +---------+ + + + + | Result panel 126 | + + + + + + +---------+ + + | (unknown) | (no date) | (unknown) | [facility] | (no | (units | (unknown) | | | | | [facility] | value) | unknown) | | | | | [facility] | | | | + + + + +---------+ + + + + | Result panel 127 | + + + + + + +---------+ + + | (unknown) | (no date) | (unknown) | [facility] | (no | (units | (unknown) | | | | | [facility] | value) | unknown) | | | | [facility] | | | | + + + + +---------+ + + + + | Result panel 128 | + + + + + + +---------+ + + | (unknown) | (no date) | (unknown) | [facility] | (no | (units | (unknown) | | | | | [facility] | value) | unknown) | | | | [facility] | | | | + + + + +---------+ + + + + | Result panel 129 | + + + + + + +---------+ + + | (unknown) | (no date) | (unknown) | [facility] | (no | (units | (unknown) | | | | | [facility] | value) | unknown) | | | | [facility] | | | | + + + + +---------+ + + + + | Result panel 130 | + + + + + + +---------+ + + | (unknown) | (no date) | (unknown) | [facility] | (no | (units | (unknown) | | | | | [facility] | value) | unknown) | | | | [facility] | | | | + + + + +---------+ + + + + | Result panel 131 | + + + + + + +---------+ + + | (unknown) | (no date) | (unknown) | [facility] | (no | (units | (unknown) | | | | | [facility] | value) | unknown) | | | | [facility] | | | | + + + + +---------+ + + + + | Result panel 132 | + + + + + + +---------+ + + | (unknown) | (no date) | (unknown) | [facility] | (no | (units | (unknown) | | | | | [facility] | value) | unknown) | | | | [facility] | | | | + + + + +---------+ + + + + | Result panel 133 | + + + + + + +---------+ + + | (unknown) | (no date) | (unknown) | [facility] | (no | (units | (unknown) | | | | | [facility] | value) | unknown) | | [facility] | [facility] | | | | + + + + +---------+ + + + + | Result panel 134 | + + + + + + +---------+ + + | (unknown) | (no date) | (unknown) | [facility] | (no | (units | (unknown) | | | | | [facility] | value) | unknown) | | [facility] | [facility] | | | | + + + + +---------+ + + + + | Result panel 135 | + + + + + + +---------+ + + | (unknown) | (no date) | (unknown) | [facility] | (no | (units | (unknown) | | | | | [facility] | value) | unknown) | | | | [facility] | | | | + + + + +---------+ + + + + | Result panel 136 | + + + + + + +---------+ + + | (unknown) | (no date) | (unknown) | [facility] | (no | (units | (unknown) | | | | | [facility] | value) | unknown) | | | | [facility] | | | | + + + + +---------+ + + + + | Result panel 137 | + + + + + + +---------+ + + | (unknown) | (no date) | (unknown) | [facility] | (no | (units | (unknown) | | | | | [facility] | value) | unknown) | | | | [facility] | | | | + + + + +---------+ + + + + | Result panel 138 | + + + + + + +---------+ + + | (unknown) | (no date) | (unknown) | [facility] | (no | (units | (unknown) | | | | | [facility] | value) | unknown) | | | | [facility] | | | | + + + + +---------+ + + + + | Result panel 139 | + + + + + + +---------+ + + | (unknown) | (no date) | (unknown) | [facility] | (no | (units | (unknown) | | | | | [facility] | value) | unknown) | | | | [facility] | | | | + + + + +---------+ + + + + | Result panel 140 | + + + + + + +---------+ + + | (unknown) | (no date) | (unknown) | [facility] | (no | (units | (unknown) | | | | | [facility] | value) | unknown) | | | | [facility] | | | | + + + + +---------+ + + + + | Result panel 141 | + + + + + + +---------+ + + | (unknown) | (no date) | (unknown) | [facility] | (no | (units | (unknown) | | | | | [facility] | value) | unknown) | | | | [facility] | | | | + + + + +---------+ + + + + | Result panel 142 | + + + + + + +---------+ + + | (unknown) | (no date) | (unknown) | [facility] | (no | (units | (unknown) | | | | | [facility] | value) | unknown) | | | | [facility] | | | | + + + + +---------+ + + + + | Result panel 143 | + + + + + + +---------+ + + | (unknown) | (no date) | (unknown) | [facility] | (no | (units | (unknown) | | | | | [facility] | value) | unknown) | | | | [facility] | | | | + + + + +---------+ + + + + | Result panel 144 | + + + + + + +---------+ + + | (unknown) | (no date) | (unknown) | [facility] | (no | (units | (unknown) | | | | | [facility] | value) | unknown) | | | | [facility] | | | | + + + + +---------+ + + + + | Result panel 145 | + + + + + + +---------+ + + | (unknown) | (no date) | (unknown) | [facility] | (no | (units | (unknown) | | | | | [facility] | value) | unknown) | | | | [facility] | | | | + + + + +---------+ + + + + | Result panel 146 | + + + + + + +---------+ + + | (unknown) | (no date) | (unknown) | [facility] | (no | (units | (unknown) | | | | | [facility] | value) | unknown) | | | | [facility] | | | | + + + + +---------+ + + + + | Result panel 147 | + + + + + + +---------+ + + | (unknown) | (no date) | (unknown) | [facility] | (no | (units | (unknown) | | | | | [facility] | value) | unknown) | | | | [facility] | | | | + + + + +---------+ + + + + | Result panel 148 | + + + + + + +---------+ + + | (unknown) | (no date) | (unknown) | [facility] | (no | (units | (unknown) | | | | | [facility] | value) | unknown) | | | | [facility] | | | | + + + + +---------+ + + + + | Result panel 149 | + + + + + + +---------+ + + | (unknown) | (no date) | (unknown) | [facility] | (no | (units | (unknown) | | | | | [facility] | value) | unknown) | | | | [facility] | | | | + + + + +---------+ + + + + | Result panel 150 | + + + + + + +---------+ + + | (unknown) | (no date) | (unknown) | [facility] | (no | (units | (unknown) | | | | | [facility] | value) | unknown) | | | | [facility] | | | | + + + + +---------+ + + + + | Result panel 151 | + + + + + + +---------+ + + | (unknown) | (no date) | (unknown) | [facility] | (no | (units | (unknown) | | | | | [facility] | value) | unknown) | | | | [facility] | | | | + + + + +---------+ + + + + | Result panel 152 | + + + + + + +---------+ + + | (unknown) | (no date) | (unknown) | [facility] | (no | (units | (unknown) | | | | [facility] | value) | unknown) | | | | [facility] | | | | + + + + +---------+ + + + + | Result panel 153 | + + + + + + +---------+ + + | (unknown) | (no date) | (unknown) | [facility] | (no | (units | (unknown) | | | | | [facility] | value) | unknown) | | | | [facility] | | | | + + + + +---------+ + + + + | Result panel 154 | + + + + + + +---------+ + + | (unknown) | (no date) | (unknown) | [facility] | (no | (units | (unknown) | | | | [facility] | value) | unknown) | | | | [facility] | | | | + + + + +---------+ + + + + | Result panel 155 | + + + + + + +---------+ + + | (unknown) | (no date) | (unknown) | [facility] | (no | (units | (unknown) | | | | [facility] | value) | unknown) | | | | [facility] | | | | + + + + +---------+ + + + + | Result panel 156 | + + + + + + +---------+ + + | (unknown) | (no date) | (unknown) | [facility] | (no | (units | (unknown) | | | | | [facility] | value) | unknown) | | | | [facility] | | | | + + + + +---------+ + + + + | Result panel 157 | + + + + + + +---------+ + + | (unknown) | (no date) | (unknown) | [facility] | (no | (units | (unknown) | | | | [facility] | value) | unknown) | | | | [facility] | | | | + + + + +---------+ + + + + | Result panel 158 | + + + + + + +---------+ + + | (unknown) | (no date) | (unknown) | [facility] | (no | (units | (unknown) | | | | [facility] | value) | unknown) | | | | [facility] | | | | + + + + +---------+ + + + + | Result panel 159 | + + + + + + +---------+ + + | (unknown) | (no date) | (unknown) | [facility] | (no | (units | (unknown) | | | | | [facility] | value) | unknown) | | | | | [facility] | | | | + + + + +---------+ + + + + | Result panel 160 | + + + + + + +---------+ + + | (unknown) | (no date) | (unknown) | [facility] | (no | (units | (unknown) | | | | | [facility] | value) | unknown) | | | | [facility] | | | | + + + + +---------+ + + + + | Result panel 161 | + + + + + + +---------+ + + | (unknown) | (no date) | (unknown) | [facility] | (no | (units | (unknown) | | | | | [facility] | value) | unknown) | | | | [facility] | | | | + + + + +---------+ + + + + | Result panel 162 | + + + + + + +---------+ + + | (unknown) | (no date) | (unknown) | [facility] | (no | (units | (unknown) | | | | [facility] | value) | unknown) | | | | [facility] | | | | + + + + +---------+ + + + + | Result panel 163 | + + + + + + +---------+ + + | (unknown) | (no date) | (unknown) | [facility] | (no | (units | (unknown) | | | | [facility] | value) | unknown) | | | | [facility] | | | | + + + + +---------+ + + + + | Result panel 164 | + + + + + + +---------+ + + | (unknown) | (no date) | (unknown) | [facility] | (no | (units | (unknown) | | | | [facility] | value) | unknown) | | | | [facility] | | | | + + + + +---------+ + + + + | Result panel 165 | + + + + + + +---------+ + + | (unknown) | (no date) | (unknown) | [facility] | (no | (units | (unknown) | | | | [facility] | value) | unknown) | | | | [facility] | | | | + + + + +---------+ + + + + | Result panel 166 | + + + + + + +---------+ + + | (unknown) | (no date) | (unknown) | [facility] | (no | (units | (unknown) | | | | [facility] | value) | unknown) | | | | [facility] | | | | + + + + +---------+ + + + + | Result panel 167 | + + + + + + +---------+ + + | (unknown) | (no date) | (unknown) | [facility] | (no | (units | (unknown) | | | | [facility] | value) | unknown) | | | | [facility] | | | | + + + + +---------+ + + + + | Result panel 168 | + + + + + + +---------+ + + | (unknown) | (no date) | (unknown) | [facility] | (no | (units | (unknown) | | | | [facility] | value) | unknown) | | | | [facility] | | | | + + + + +---------+ + + + + | Result panel 169 | + + + + + + +---------+ + + | (unknown) | (no date) | (unknown) | [facility] | (no | (units | (unknown) | | | | [facility] | value) | unknown) | | | | [facility] | | | | + + + + +---------+ + + + + | Result panel 170 | + + + + + + +---------+ + + | (unknown) | (no date) | (unknown) | [facility] | (no | (units | (unknown) | | | | [facility] value) | unknown) | | | | [facility] | | | | + + + + +---------+ + + Social History No information. Vital Signs + + + +---------+ | date | measurement | value | units | + + + +---------+ | 2022-08-09 00:00 | BMI | 34.4 | kg/m2 | + + + +---------+ | 2022-08-09 00:00 | BP_diastolic | 53 | mmHg | + + + +---------+ | 2022-08-09 00:00 | BP_systolic | 92 | mmHg | + + + +---------+ | 2022-08-09 00:00 | heart_rate | 94 | /min | + + + +---------+ | 2022-08-09 00:00 | height_metric | 152.4 | cm | + + + +---------+ | 2022-08-09 00:00 | height_standard | 60 | in | + + + +---------+ | 2022-08-09 00:00 | o2_saturation | 95 | % | + + + +---------+ | 2022-08-09 00:00 | respiration_rate | 25 | /min | + + + +---------+ | 2022-08-09 00:00 | temperature_metric | 37.72 | C | | | | | | + + + +---------+ | 2022-08-09 00:00 | | 99.9 | F | | | temperature_standar | | | | | d | | | + + + +---------+ | 2022-08-09 00:00 | weight_metric | 79.8 | kg | + + + +---------+ | 2022-08-09 00:00 | weight_standard | 175.93 | lb | + + + +---------+ | 2022-08-10 00:00 | BMI | 34.3 | kg/m2 | + + + +---------+ | 2022-08-10 00:00 | BP_diastolic | 85 | mmHg | + + + +---------+ | 2022-08-10 00:00 | BP_systolic | 119 | mmHg | + + + +---------+ | 2022-08-10 00:00 | heart_rate | 81 | /min | + + + +---------+ | 2022-08-10 00:00 | height_metric | 152.4 | cm | + + + +---------+ | 2022-08-10 00:00 | height_standard | 60 | in | + + + +---------+ | 2022-08-10 00:00 | o2_saturation | 98 | % | + + + +---------+ | 2022-08-10 00:00 | respiration_rate | 16 | /min | + + + +---------+ | 2022-08-10 00:00 | temperature_metric | 37.5 | C | | | | | | + + + +---------+ | 2022-08-10 00:00 | | 99.5 | F | | | temperature_standar | | | | | d | | | + + + +---------+ | 2022-08-10 00:00 | weight_metric | 79.6 | kg | + + + +---------+ | 2022-08-10 00:00 | weight_standard | 175.49 | lb | + + + +---------+ | 2022-08-12 00:00 | BMI | 34.2 | kg/m2 | + + + +---------+ | 2022-08-12 00:00 | BP_diastolic | 00 | mmHg | + + + +---------+ | 2022-08-12 00:00 | BP_systolic | 00 | mmHg | + + + +---------+ | 2022-08-12 00:00 | heart_rate | 00 | /min | + + + +---------+ | 2022-08-12 00:00 | height_metric | 152.4 | cm | + + + +---------+ | 2022-08-12 00:00 | height_standard | 60 | in | + + + +---------+ | 2022-08-12 00:00 | o2_saturation | 00 | % | + + + +---------+ | 2022-08-12 00:00 | respiration_rate | 00 | /min | + + + +---------+ | 2022-08-12 00:00 | temperature_metric | -17.78 | C | | | | | | + + + +---------+ | 2022-08-12 00:00 | | 0 | F | | | temperature_standar | | | | | d | | | + + + +---------+ | 2022-08-12 00:00 | weight_metric | 79.38 | kg | + + + +---------+ | 2022-08-12 00:00 | weight_standard | 175 | lb | + + + +---------+ | 2022-10-18 00:00 | BMI | 34.2 | kg/m2 | + + + +---------+ | 2022-10-18 00:00 | BP_diastolic | 68 | mmHg | + + + +---------+ | 2022-10-18 00:00 | BP_systolic | 115 | mmHg | + + + +---------+ | 2022-10-18 00:00 | heart_rate | 82 | /min | + + + +---------+ | 2022-10-18 00:00 | height_metric | 152.4 | cm | + + + +---------+ | 2022-10-18 00:00 | height_standard | 60 | in | + + + +---------+ | 2022-10-18 00:00 | o2_saturation | 99 | % | + + + +---------+ | 2022-10-18 00:00 | respiration_rate | 16 | /min | + + + +---------+ | 2022-10-18 00:00 | temperature_metric | 36.83 | C | | | | | | + + + +---------+ | 2022-10-18 00:00 | | 98.3 | F | | | temperature_standar | | | | | d | | | + + + +---------+ | 2022-10-18 00:00 | weight_metric | 79.38 | kg | + + + +---------+ | 2022-10-18 00:00 | weight_standard | 175 | lb | + + + +---------+ | 2022-11-18 00:00 | BMI | 75.3 | kg/m2 | + + + +---------+ | 2022-11-18 00:00 | BP_diastolic | 77 | mmHg | + + + +---------+ | 2022-11-18 00:00 | BP_systolic | 111 | mmHg | + + + +---------+ | 2022-11-18 00:00 | heart_rate | 76 | /min | + + + +---------+ | 2022-11-18 00:00 | height_metric | 152.4 | cm | + + + +---------+ | 2022-11-18 00:00 | height_standard | 60 | in | + + + +---------+ | 2022-11-18 00:00 | o2_saturation | 100 | % | + + + +---------+ | 2022-11-18 00:00 | respiration_rate | 20 | /min | + + + +---------+ | 2022-11-18 00:00 | temperature_metric | 37.67 | C | | | | | | + + + +---------+ | 2022-11-18 00:00 | | 99.8 | F | | | temperature_standar | | | | | d | | | + + + +---------+ | 2022-11-18 00:00 | weight_metric | 175 | kg | + + + +---------+ | 2022-11-18 00:00 | weight_standard | 385.81 | lb | + + + +---------+"
--- OUTSIDE RECORDS SUMMARY | ~2023-05-19 | XMS | Continuity of Care Document ---
Demographics + + + | Address | [address] | | | [place] [address] | + + + | Preferred Language | Unknown | + + + | Marital Status | | + + + | Anabaptist Affiliation | Unknown | + + + | Race | Unknown | + + + | Ethnic Group | Not or | + + + Author + + + | Author | [facility] | + + + | Organization | [facility] | + + + | Address | [address] | | | [place] [address] | + + + | Phone | | + + + Care Team Providers + + + + | Care Medical Supervisor Name | Role | Phone | + + + + Unavailable | Unavailable | + + + + Unavailable | Unavailable | + + + + Allergies and Intolerances + + + + + | date | description | facility | type | + + + + + | (no date) | Amoxicillin | [facility] | (unknown) | | | [facility] Hospital | | + + + + + | (no date) | Amoxicillin | [facility] | (unknown) | | | | Hospital | | + + + + + | (no date) | Amoxicillin | [facility] | (unknown) | | | | Hospital | | + + + + + Encounters No information. Functional Status No information. Immunizations No information. Medications + + + + | date | description | facility | + + + + | 2022-08-10 00:00 | ONDANSETRON | [facility] | + + + + | 2022-10-18 00:00 | ONDANSETRON | [facility] | + + + + | 2019-12-15 00:00 | ONDANSETRON HCL | [facility] | + + + + | 2022-08-09 00:00 | PHENAZOPYRIDINE HCL | [facility] | + + + + | 2022-08-09 00:00 | ACETAMINOPHEN | [facility] | + + + + | 2022-08-10 00:00 | ACETAMINOPHEN | [facility] | + + + + | 2022-08-12 00:00 | ACETAMINOPHEN | [facility] | + + + + | 2022-08-09 00:00 | FLUOXETINE HCL | [facility] | + + + + | 2022-08-10 00:00 | FLUOXETINE HCL | [facility] | + + + + | 2022-08-12 00:00 | FLUOXETINE HCL | [facility] | + + + + | 2022-10-19 00:00 | FLUOXETINE HCL | [facility] | + + + + | 2022-11-18 00:00 | FLUOXETINE HCL | [facility] | + + + + | 2022-11-18 00:00 | ONDANSETRON | [facility] | + + + + | 2022-11-18 00:00 | NITROFURANTOIN MONOHYD | [facility] | | | MACROCR | | + + + + | 2022-08-09 00:00 | | [facility] | | | SULFAMETHOXAZOLE/TRIMETHOPR | | | | IM DS | | + + + + Problems + + + + | date | description | facility | + + + + | 2019-12-15 00:00 | Gastroenteritis | [facility] | + + + + | 2019-12-15 00:00 | Abdominal pain | [facility] | + + + + | 2021-01-20 00:00 | Encounter for | [facility] | | | postoperative wound check | | + + + + | 2021-07-26 00:00 | Acute pelvic pain | [facility] | + + + + | 2021-08-07 00:00 | Patient left without being | [facility] | | | seen | | + + + + | 2022-04-13 00:00 | Impacted cerumen | [facility] | + + + + | 2022-08-09 00:00 | Pyelonephritis | [facility] | + + + + | 2022-10-18 00:00 | Influenza due to influenza | [facility] | | | virus, type A, human | | + + + + | 2022-11-18 00:00 | Urinary tract infection | [facility] | + + + + Procedures No [...] | (unknown) | | | | | Manihs | value) | unknown) | | | [...] | (unknown) | | | | | Mainsh | value) | unknown) | | | [...]
[~2023-05-19 15:39] MED LIST changes: +MACROBID 100 M100 MG PO; +ONDANSETRON ODT8 MG PO
[2023-05-19] MEDS ORDERED: VENTOLIN HFA18 GM INH (17:52)
[2023-05-19 19:45] VITALS: BP 128/96
== END 2023-05-19 19:45 | disposition home or self-care (01) ==
LOC: ED 15:39
DX: R10.11 Right upper quadrant pain (principal); R11.0 Nausea; R19.7 Diarrhea, unspecified; Z88.0 Allergy status to penicillin; Z79.899 Other long term (current) drug therapy
CPT/HCPCS: 36415; 74177; 80053; 81001; 83690; 83735; 84703; 85025; 99284 25; J1170

== ENCOUNTER 2023-05-22 22:40 | Emergency (ER) | payer OTHER ==
[~2023-05-22] VITALS: Ht 152.4 cm; Wt 74.2 kg
--- OUTSIDE RECORDS SUMMARY | ~2023-05-22 | XMS | Continuity of Care Document ---
Demographics + + + | Address | [address] | | | [place] [address] | + + + | Preferred Language | Unknown | + + + | Marital Status | | + + + | Hinduism Affiliation | Unknown | + + + | Race | Unknown | + + + | Ethnic Group | Not or | + + + Author + + + | Author | [facility] | + + + | Organization | [facility] | + + + | Address | [address] | | | [place] [address] | + + + | Phone | | + + + Care Team Providers + + + + | Care Teacher Visually Impaired Name | Role | Phone | + + + + Unavailable | Unavailable | + + + + Unavailable | Unavailable | + + + + Allergies and Intolerances + + + + + + | date | description | facility | reaction | severity | + + + + + + | (no date) | Amoxicillin | [facility] | (no reaction) | (no severity) | | [facility] | | | + + + + + + | (no date) | Amoxicillin | [facility] | (no reaction) | (no severity) | | | [facility] | | | + + + + + + | (no date) | Amoxicillin | [facility] | (no reaction) | (no severity) | | | | [facility] | | | + + + + + + | (no date) | amoxicillin | [facility] | (no reaction) | (no severity) | + + + + + + Encounters No information. Functional Status No information. Immunizations No information. Medications + + + + | date | description | facility | + + + + | 2022-08-10 00:00 | ONDANSETRON | [facility] | + + + + | 2022-10-18 00:00 | ONDANSETRON | [facility] | + + + + | 2019-12-15 00:00 | ONDANSETRON HCL | [facility] | + + + + | 2022-08-09 00:00 | PHENAZOPYRIDINE HCL | [facility] | + + + + | 2022-08-09 00:00 | ACETAMINOPHEN | [facility] | + + + + | 2022-08-10 00:00 | ACETAMINOPHEN | [facility] | + + + + | 2022-08-12 00:00 | ACETAMINOPHEN | [facility] | + + + + | 2022-08-09 00:00 | FLUOXETINE HCL | [facility] | + + + + | 2022-08-10 00:00 | FLUOXETINE HCL | [facility] | + + + + | 2022-08-12 00:00 | FLUOXETINE HCL | [facility] | + + + + | 2022-10-19 00:00 | FLUOXETINE HCL | [facility] | + + + + | 2022-11-18 00:00 | FLUOXETINE HCL | [facility] | + + + + | 2023-05-19 00:00 | FLUOXETINE HCL | [facility] | + + + + | 2022-11-18 00:00 | ONDANSETRON | [facility] | + + + + | 2022-11-18 00:00 | NITROFURANTOIN MONOHYD | [facility] | | | MACROCR | | + + + + | 2022-08-09 00:00 | | [facility] | | | SULFAMETHOXAZOLE/TRIMETHOPR | | | | IM DS | | + + + + | 2023-05-19 00:00 | ALBUTEROL SULFATE | [facility] | + + + + Problems + + + + | date | description | facility | + + + + | 2019-12-15 00:00 | Gastroenteritis | [facility] | + + + + | 2019-12-15 00:00 | Abdominal pain | [facility] | + + + + | 2021-01-20 00:00 | Encounter for | [facility] | | | postoperative wound check | | + + + + | 2021-07-26 00:00 | Acute pelvic pain | [facility] | + + + + | 2021-08-07 00:00 | Patient left without being | [facility] | | | seen | | + + + + | 2022-04-13 00:00 | Impacted cerumen | [facility] | + + + + | 2022-08-09 00:00 | Pyelonephritis | [facility] | + + + + | 2022-10-18 00:00 | Influenza due to influenza | [facility] | | | virus, type A, human | | + + + + | 2022-11-18 00:00 | Urinary tract infection | [facility] | + + + + | 2023-05-19 00:00 | Diarrhea | [facility] | + + + + | 2023-05-19 15:40 | RIGHT UPPER QUADRANT PAIN | [facility] | + + + + | 2023-05-19 15:40 | NAUSEA | [facility] | + + + + | 2023-05-19 15:40 | DIARRHEA, UNSPECIFIED | [facility] | + + + + | 2023-05-19 15:40 | OTHER NUTRITIONAL SERVICES DIRECTOR (CURRENT) | [facility] | | | DRUG THERAPY | | + + + + | 2023-05-19 15:40 | ALLERGY STATUS TO | [facility] | | | PENICILLIN | | + + + + Procedures No information. Results/Labs +--------+--------+ +---------+--------+---------+ | test | date | facility | value | unit | notes | +--------+--------+ +---------+--------+---------+ + + | Result panel 1 | + + + + + + + + + | | 2022-08-09 | [facility] | YELLOW | (missing) | (missing) | | (unavailable | 16:20 | [facility] | | | | + + + + + + + + + | Result panel 2 | + + + + + +---------+ + + | | 2022-08-09 | [facility] | CLEAR | (missing) | (missing) | | (unavailable | 16:20 | [facility] | | | | + + + +---------+ + + + + | Result panel 3 | + + + + + + + + + | | 2022-08-09 | [facility] | NEGATIVE | (missing) | (missing) | | (unavailable | 16:20 | [facility] | | | | + + + + + + + + + | Result panel 4 | + + + + + + + + + | | 2022-08-09 | [facility] | NEGATIVE | (missing) | (missing) | | (unavailable | 16:20 | [facility] | | | | + + + + + + + + + | Result panel 5 | + + + + + + + + + | | 2022-08-09 | [facility] | NEGATIVE | (missing) | (missing) | | (unavailable | 16:20 | [facility] | | | | + + + + + + + + + | Result panel 6 | + + + + + + + + + | | 2022-08-09 | [facility] | <=1.005 | (missing) | (missing) | | (unavailable | 16:20 | [facility] | | | | + + + + + + + + + | Result panel 7 | + + + + + +---------+ + + | | 2022-08-09 | [facility] | SMALL | (missing) | (missing) | | (unavailable | 16:20 | [facility] | | | | + + + +---------+ + + + + | Result panel 8 | + + + + + +-------+ + + | | 2022-08-09 | [facility] | 6.5 | (missing) | (missing) | | (unavailable | 16:20 | [facility] | | | | + + + +-------+ + + + + | Result panel 9 | + + + + + + + + + | | 2022-08-09 | [facility] | NEGATIVE | (missing) | (missing) | | (unavailable | 16:20 | [facility] | | | | + + + + + + + + + | Result panel 10 | + + + + + +-------+ + + | | 2022-08-09 | [facility] | 1.0 | (missing) | (missing) | | (unavailable | 16:20 | [facility] | | | | + + + +-------+ + + + + | Result panel 11 | + + + + + + + + + | | 2022-08-09 | [facility] | NEGATIVE | (missing) | (missing) | | (unavailable | 16:20 | [facility] | | | | + + + + + + + + + | Result panel 12 | + + + + + + + + + | | 2022-08-09 | [facility] | MODERATE | (missing) | (missing) | | (unavailable | 16:20 | [facility] | | | | + + + + + + + + + | Result panel 13 | + + + + + +-------+ + + | | 2022-08-09 | [facility] | 2-3 | (missing) | (missing) | | (unavailable | 16:20 | [facility] | | | | + + + +-------+ + + + + | Result panel 14 | + + + + + +-------+ + + | | 2022-08-09 | [facility] | >50 | (missing) | (missing) | | (unavailable | 16:20 | [facility] | | | | + + + +-------+ + + + + | Result panel 15 | + + + + + + + + + | | 2022-08-09 | [facility] | SQUAMOUS 2+ | (missing) | (missing) | | (unavailable | 16:20 | [facility] | | | | + + + + + + + + + | Result panel 16 | + + + + + + + + + | | 2022-08-09 | [facility] | NONE SEEN | (missing) | (missing) | | (unavailable | 16:20 | [facility] | | | | + + + + + + + + + | Result panel 17 | + + + + + +------+ + + | | 2022-08-09 | [facility] | 4+ | (missing) | (missing) | | (unavailable | 16:20 | [facility] | | | | + + + +------+ + + + + | Result panel 18 | + + + + + + + + + | | 2022-08-09 | [facility] | NONE SEEN | (missing) | (missing) | | (unavailable | 16:20 | [facility] | | | | + + + + + + + + + | Result panel 19 | + + + + + +-------+ + + | | 2022-08-09 | [facility] | Yes | (missing) | (missing) | | (unavailable | 16:20 | [facility] | | | | + + + +-------+ + + + + | Result panel 20 | + + + + + + + + + | | 2022-08-09 | [facility] | CLEAN CATCH | (missing) | (missing) | | (unavailable | 16:20 | [facility] | | | | + + + + + + + + + | Result panel 21 | + + + + + + + + + | | 2022-08-09 | [facility] | NEGATIVE | (missing) | (missing) | | (unavailable | 16:20 | [facility] | | | | + + + + + + + + + | Result panel 22 | + + + + + + + + + | | 2022-08-09 | [facility] | YELLOW | (missing) | (missing) | | (unavailable | 16:20 | [facility] | | | | + + + + + + + + + | Result panel 23 | + + + + + +---------+ + + | | 2022-08-09 | [facility] | CLEAR | (missing) | (missing) | | (unavailable | 16:20 | [facility] | | | | + + + +---------+ + + + + | Result panel 24 | + + + + + + + + + | | 2022-08-09 | [facility] | NEGATIVE | (missing) | (missing) | | (unavailable | 16:20 | [facility] | | | | + + + + + + + + + | Result panel 25 | + + + + + + + + + | | 2022-08-09 | [facility] | NEGATIVE | (missing) | (missing) | | (unavailable | 16:20 | [facility] | | | | + + + + + + + + + | Result panel 26 | + + + + + + + + + | | 2022-08-09 | [facility] | NEGATIVE | (missing) | (missing) | | (unavailable | 16:20 | [facility] | | | | + + + + + + + + + | Result panel 27 | + + + + + + + + + | | 2022-08-09 | [facility] | <=1.005 | (missing) | (missing) | | (unavailable | 16:20 | [facility] | | | | + + + + + + + + + | Result panel 28 | + + + + + +---------+ + + | | 2022-08-09 | [facility] | SMALL | (missing) | (missing) | | (unavailable | 16:20 | [facility] | | | | + + + +---------+ + + + + | Result panel 29 | + + + + + +-------+ + + | | 2022-08-09 | [facility] | 6.5 | (missing) | (missing) | | (unavailable | 16:20 | [facility] | | | | + + + +-------+ + + + + | Result panel 30 | + + + + + + + + + | | 2022-08-09 | [facility] | NEGATIVE | (missing) | (missing) | | (unavailable | 16:20 | [facility] | | | | + + + + + + + + + | Result panel 31 | + + + + + +-------+ + + | | 2022-08-09 | [facility] | 1.0 | (missing) | (missing) | | (unavailable | 16:20 | [facility] | | | | + + + +-------+ + + + + | Result panel 32 | + + + + + + + + + | | 2022-08-09 | [facility] | NEGATIVE | (missing) | (missing) | | (unavailable | 16:20 | [facility] | | | | + + + + + + + + + | Result panel 33 | + + + + + + + + + | | 2022-08-09 | [facility] | MODERATE | (missing) | (missing) | | (unavailable | 16:20 | [facility] | | | | + + + + + + + + + | Result panel 34 | + + + + + +-------+ + + | | 2022-08-09 | [facility] | 2-3 | (missing) | (missing) | | (unavailable | 16:20 | [facility] | | | | + + + +-------+ + + + + | Result panel 35 | + + + + + +-------+ + + | | 2022-08-09 | [facility] | >50 | (missing) | (missing) | | (unavailable | 16:20 | [facility] | | | | + + + +-------+ + + + + | Result panel 36 | + + + + + + + + + | | 2022-08-09 | [facility] | SQUAMOUS 2+ | (missing) | (missing) | | (unavailable | 16:20 | [facility] | | | | + + + + + + + + + | Result panel 37 | + + + + + + + + + | | 2022-08-09 | [facility] | NONE SEEN | (missing) | (missing) | | (unavailable | 16:20 | [facility] | | | | + + + + + + + + + | Result panel 38 | + + + + + +------+ + + | | 2022-08-09 | [facility] | 4+ | (missing) | (missing) | | (unavailable | 16:20 | [facility] | | | | + + + +------+ + + + + | Result panel 39 | + + + + + + + + + | | 2022-08-09 | [facility] | NONE SEEN | (missing) | (missing) | | (unavailable | 16:20 | [facility] | | | | + + + + + + + + + | Result panel 40 | + + + + + +-------+ + + | | 2022-08-09 | [facility] | Yes | (missing) | (missing) | | (unavailable | 16:20 | [facility] | | | | + + + +-------+ + + + + | Result panel 41 | + + + + + + + + + | | 2022-08-09 | [facility] | CLEAN CATCH | (missing) | (missing) | | (unavailable | 16:20 | [facility] | | | | + + + + + + + + + | Result panel 42 | + + + + + + + + + | | 2022-08-09 | [facility] | NEGATIVE | (missing) | (missing) | | (unavailable | 16:20 | [facility] | | | | + + + + + + + + + | Result panel 43 | + + + + + + + + + | | 2022-08-09 | [facility] | YELLOW | (missing) | (missing) | | (unavailable | 16:20 | [facility] | | | | + + + + + + + + + | Result panel 44 | + + + + + +---------+ + + | | 2022-08-09 | [facility] | CLEAR | (missing) | (missing) | | (unavailable | 16:20 | [facility] | | | | + + + +---------+ + + + + | Result panel 45 | + + + + + + + + + | | 2022-08-09 | [facility] | NEGATIVE | (missing) | (missing) | | (unavailable | 16:20 | [facility] | | | | + + + + + + + + + | Result panel 46 | + + + + + + + + + | | 2022-08-09 | [facility] | NEGATIVE | (missing) | (missing) | | (unavailable | 16:20 | [facility] | | | | + + + + + + + + + | Result panel 47 | + + + + + + + + + | | 2022-08-09 | [facility] | NEGATIVE | (missing) | (missing) | | (unavailable | 16:20 | [facility] | | | | + + + + + + + + + | Result panel 48 | + + + + + + + + + | | 2022-08-09 | [facility] | <=1.005 | (missing) | (missing) | | (unavailable | 16:20 [facility] | | | | + + + + + + + + + | Result panel 49 | + + + + + +---------+ + + | | 2022-08-09 | [facility] | SMALL | (missing) | (missing) | | (unavailable | 16:20 [facility] | | | | + + + +---------+ + + + + | Result panel 50 | + + + + + +-------+ + + | | 2022-08-09 | [facility] | 6.5 | (missing) | (missing) | | (unavailable | 16:20 [facility] | | | | + + + +-------+ + + + + | Result panel 51 | + + + + + + + + + | | 2022-08-09 | [facility] | NEGATIVE | (missing) | (missing) | | (unavailable | 16:20 [facility] | | | | + + + + + + + + + | Result panel 52 | + + + + + +-------+ + + | | 2022-08-09 | [facility] | 1.0 | (missing) | (missing) | | (unavailable | 16:20 [facility] | | | | + + + +-------+ + + + + | Result panel 53 | + + + + + + + + + | | 2022-08-09 | [facility] | NEGATIVE | (missing) | (missing) | | (unavailable | 16:20 | [facility] | | | | + + + + + + + + + | Result panel 54 | + + + + + + + + + | | 2022-08-09 | [facility] | MODERATE | (missing) | (missing) | | (unavailable | 16:20 | [facility] | | | | + + + + + + + + + | Result panel 55 | + + + + + +-------+ + + | | 2022-08-09 | [facility] | 2-3 | (missing) | (missing) | | (unavailable | 16:20 [facility] | | | | + + + +-------+ + + + + | Result panel 56 | + + + + + +-------+ + + | | 2022-08-09 | [facility] | >50 | (missing) | (missing) | | (unavailable | 16:20 [facility] | | | | + + + +-------+ + + + + | Result panel 57 | + + + + + + + + + | | 2022-08-09 | [facility] | SQUAMOUS 2+ | (missing) | (missing) | | (unavailable | 16:20 | [facility] | | | | + + + + + + + + + | Result panel 58 | + + + + + + + + + | | 2022-08-09 | [facility] | NONE SEEN | (missing) | (missing) | | (unavailable | 16:20 [facility] | | | | + + + + + + + + + | Result panel 59 | + + + + + +------+ + + | | 2022-08-09 | [facility] | 4+ | (missing) | (missing) | | (unavailable | 16:20 [facility] | | | | + + + +------+ + + + + | Result panel 60 | + + + + + + + + + | | 2022-08-09 | [facility] | NONE SEEN | (missing) | (missing) | | (unavailable | 16:20 [facility] | | | | + + + + + + + + + | Result panel 61 | + + + + + +-------+ + + | | 2022-08-09 | [facility] | Yes | (missing) | (missing) | | (unavailable | 16:20 [facility] | | | | + + + +-------+ + + + + | Result panel 62 | + + + + + + + + + | | 2022-08-09 | [facility] | CLEAN CATCH | (missing) | (missing) | | (unavailable | 16:20 [facility] | | | | + + + + + + + + + | Result panel 63 | + + + + + + + + + | | 2022-08-09 | [facility] | NEGATIVE | (missing) | (missing) | | (unavailable | 16:20 [facility] | | | | + + + + + + + + + | Result panel 64 | + + + + + +--------+ + + | | 2022-08-09 | [facility] | 10.1 | (missing) | (missing) | | (unavailable | 16:42 [facility] | | | | + + + +--------+ + + + + | Result panel 65 | + + + + + +--------+ + + | | 2022-08-09 | [facility] | 4.46 | (missing) | (missing) | | (unavailable | 16:42 [facility] | | | | + + + +--------+ + + + + | Result panel 66 | + + + + + +--------+ + + | | 2022-08-09 | [facility] | 13.4 | (missing) | (missing) | | (unavailable | 16:42 [facility] | | | | + + + +--------+ + + + + | Result panel 67 | + + + + + +--------+ + + | | 2022-08-09 | [facility] | 40.1 | (missing) | (missing) | | (unavailable | 16:42 [facility] | | | | + + + +--------+ + + + + | Result panel 68 | + + + + + +--------+ + + | | 2022-08-09 | [facility] | 90.0 | (missing) | (missing) | | (unavailable | 16:42 [facility] | | | + + + +--------+ + + + + | Result panel 69 | + + + + + +--------+ + + | | 2022-08-09 | [facility] | 30.0 | (missing) | (missing) | | (unavailable | 16:42 [facility] | | | | + + + +--------+ + + + + | Result panel 70 | + + + + + +--------+ + + | | 2022-08-09 | [facility] | 33.3 | (missing) | (missing) | | (unavailable | 16:42 [facility] | | | | + + + +--------+ + + + + | Result panel 71 | + + + + + +--------+ + + | | 2022-08-09 | [facility] | 12.8 | (missing) | (missing) | | (unavailable | 16:42 [facility] | | | | + + + +--------+ + + + + | Result panel 72 | + + + + + +-------+ + + | | 2022-08-09 | [facility] | 231 | (missing) | (missing) | | (unavailable | 16:42 [facility] | | | | + + + +-------+ + + + + | Result panel 73 | + + + + + +--------+ + + | | 2022-08-09 | [facility] | 80.9 | (missing) | (missing) | | (unavailable | 16:42 [facility] | | | | + + + +--------+ + + + + | Result panel 74 | + + + + + +-------+ + + | | 2022-08-09 | [facility] | 8.8 | (missing) | (missing) | | (unavailable | 16:42 [facility] | | | | + + + +-------+ + + + + | Result panel 75 | + + + + + +-------+ + + | | 2022-08-09 | [facility] | 8.4 | (missing) | (missing) | | (unavailable | 16:42 [facility] | | | | + + + +-------+ + + + + | Result panel 76 | + + + + + +-------+ + + | | 2022-08-09 | [facility] | 1.5 | (missing) | (missing) | | (unavailable | 16:42 [facility] | | | | + + + +-------+ + + + + | Result panel 77 | + + + + + +-------+ + + | | 2022-08-09 | [facility] | 0.4 | (missing) | (missing) | | (unavailable | 16:42 [facility] | | | | + + + +-------+ + + + + | Result panel 78 | + + + + + +------+---------+ + | | 2022-08-09 | [facility] | 84 | mg/dL | (missing) | | (unavailable | 16:42 [facility] | | | | + + + +------+---------+ + + + | Result panel 79 | + + + + + +-----+---------+ + | | 2022-08-09 | [facility] | 7 | mg/dL | (missing) | | (unavailable | 16:42 [facility] | | | | + + + +-----+---------+ + + + | Result panel 80 | + + + + + +--------+---------+ + | | 2022-08-09 | [facility] | 1.00 | mg/dL | (missing) | | (unavailable | 16:42 [facility] | | | | + + + +--------+---------+ + + + | Result panel 81 | + + + + + +------+ + + | | 2022-08-09 | [facility] | 79 | (missing) | (missing) | | (unavailable | 16:42 [facility] | | | | + + + +------+ + + + + | Result panel 82 | + + + + + +--------+ + + | | 2022-08-09 | [facility] | 7.00 | (missing) | (missing) | | (unavailable | 16:42 [facility] | | | | + + + +--------+ + + + + | Result panel 83 | + + + + + +-------+ + + | | 2022-08-09 | [facility] | 138 | (missing) | (missing) | | (unavailable | 16:42 [facility] | | | + + + +-------+ + + + + | Result panel 84 | + + + + + +-------+ + + | | 2022-08-09 | [facility] | 3.5 | (missing) | (missing) | | (unavailable | 16:42 [facility] | | | + + + +-------+ + + + + | Result panel 85 | + + + + + +-------+ + + | | 2022-08-09 | [facility] | 103 | (missing) | (missing) | | (unavailable | 16:42 [facility] | | | + + + +-------+ + + + + | Result panel 86 | + + + + + +------+ + + | | 2022-08-09 | [facility] | 25 | (missing) | (missing) | | (unavailable | 16:42 [facility] | | | | + + + +------+ + + + + | Result panel 87 | + + + + + +--------+ + + | | 2022-08-09 | [facility] | 13.5 | (missing) | (missing) | | (unavailable | 16:42 [facility] | | | | + + + +--------+ + + + + | Result panel 88 | + + + + + +-------+---------+ + | | 2022-08-09 | [facility] | 8.8 | mg/dL | (missing) | | (unavailable | 16:42 [facility] | | | | + + + +-------+---------+ + + + | Result panel 89 | + + + + + +-------+ + + | | 2022-08-09 | [facility] | 7.4 | (missing) | (missing) | | (unavailable | 16:42 [facility] | | | | + + + +-------+ + + + + | Result panel 90 | + + + + + +-------+ + + | | 2022-08-09 | [facility] | 3.3 | (missing) | (missing) | | (unavailable | 16:42 [facility] | | | | + + + +-------+ + + + + | Result panel 91 | + + + + + +-------+ + + | | 2022-08-09 | [facility] | 4.1 | (missing) | (missing) | | (unavailable | 16:42 | [facility] | | | | + + + +-------+ + + + + | Result panel 92 | + + + + + +--------+ + + | | 2022-08-09 | [facility] | 0.80 | (missing) | (missing) | | (unavailable | 16:42 | [facility] | | | | + + + +--------+ + + + + | Result panel 93 | + + + + + +-------+ + + | | 2022-08-09 | [facility] | 0.7 | (missing) | (missing) | | (unavailable | 16:42 | [facility] | | | | + + + +-------+ + + + + | Result panel 94 | + + + + + +------+ + + | | 2022-08-09 | [facility] | 15 | (missing) | (missing) | | (unavailable | 16:42 | [facility] | | | | + + + +------+ + + + + | Result panel 95 | + + + + + +------+ + + | | 2022-08-09 | [facility] | 20 | (missing) | (missing) | | (unavailable | 16:42 | [facility] | | | | + + + +------+ + + + + | Result panel 96 | + + + + + +------+ + + | | 2022-08-09 | [facility] | 96 | (missing) | (missing) | | (unavailable | 16:42 | [facility] | | | | + + + +------+ + + + + | Result panel 97 | + + + + + +-------+ + + | | 2022-08-09 | [facility] | 1.0 | (missing) | (missing) | | (unavailable | 16:42 | [facility] | | | | + + + +-------+ + + + + | Result panel 98 | + + + + + +--------+ + + | | 2022-08-10 | [facility] | 17.8 | (missing) | (missing) | | (unavailable | 12:50 | [facility] | | | | + + + +--------+ + + + + | Result panel 99 | + + + + + + + + + | | 2022-08-10 | [facility] | SEE COMMENT | (missing) | (missing) | | (unavailable | 12:50 | [facility] | | | | + + + + + + + + + | Result panel 100 | + + + + + +--------+ + + | | 2022-08-10 | [facility] | 4.32 | (missing) | (missing) | | (unavailable | 12:50 | [facility] | | | | + + + +--------+ + + + + | Result panel 101 | + + + + + +--------+ + + | | 2022-08-10 | [facility] | 12.9 | (missing) | (missing) | | (unavailable | 12:50 | [facility] | | | | + + + +--------+ + + + + | Result panel 102 | + + + + + +--------+ + + | | 2022-08-10 | [facility] | 38.4 | (missing) | (missing) | | (unavailable | 12:50 | [facility] | | | | + + + +--------+ + + + + | Result panel 103 | + + + + + +--------+ + + | | 2022-08-10 | [facility] | 88.8 | (missing) | (missing) | | (unavailable | 12:50 | [facility] | | | | + + + +--------+ + + + + | Result panel 104 | + + + + + +--------+ + + | | 2022-08-10 | [facility] | 29.9 | (missing) | (missing) | | (unavailable | 12:50 | [facility] | | | | + + + +--------+ + + + + | Result panel 105 | + + + + + +--------+ + + | | 2022-08-10 | [facility] | 33.7 | (missing) | (missing) | | (unavailable | 12:50 | [facility] | | | | + + + +--------+ + + + + | Result panel 106 | + + + + + +--------+ + + | | 2022-08-10 | [facility] | 12.7 | (missing) | (missing) | | (unavailable | 12:50 | [facility] | | | | + + + +--------+ + + + + | Result panel 107 | + + + + + +-------+ + + | | 2022-08-10 | [facility] | 251 | (missing) | (missing) | | (unavailable | 12:50 | [facility] | | | | + + + +-------+ + + + + | Result panel 108 | + + + + + +--------+ + + | | 2022-08-10 | [facility] | 86.1 | (missing) | (missing) | | (unavailable | 12:50 | [facility] | | | | + + + +--------+ + + + + | Result panel 109 | + + + + + +-------+ + + | | 2022-08-10 | [facility] | 4.8 | (missing) | (missing) | | (unavailable | 12:50 | [facility] | | | | + + + +-------+ + + + + | Result panel 110 | + + + + + +-------+ + + | | 2022-08-10 | [facility] | 8.8 | (missing) | (missing) | | (unavailable | 12:50 | [facility] | | | | + + + +-------+ + + + + | Result panel 111 | + + + + + +-------+ + + | | 2022-08-10 | [facility] | 0.1 | (missing) | (missing) | | (unavailable | 12:50 | [facility] | | | | + + + +-------+ + + + + | Result panel 112 | + + + + + +-------+ + + | | 2022-08-10 | [facility] | 0.2 | (missing) | (missing) | | (unavailable | 12:50 | [facility] | | | | + + + +-------+ + + + + | Result panel 113 | + + + + + +-------+---------+ + | | 2022-08-10 | [facility] | 103 | mg/dL | (missing) | | (unavailable | 12:50 | [facility] | | | | + + + +-------+---------+ + + + | Result panel 114 | + + + + + +-----+---------+ + | | 2022-08-10 | [facility] | 9 | mg/dL | (missing) | | (unavailable | 12:50 | [facility] | | | | + + + +-----+---------+ + + + | Result panel 115 | + + + + + +--------+---------+ + | | 2022-08-10 | [facility] | 1.04 | mg/dL | (missing) | | (unavailable | 12:50 | [facility] | | | | + + + +--------+---------+ + + + | Result panel 116 | + + + + + +------+ + + | | 2022-08-10 | [facility] | 75 | (missing) | (missing) | | (unavailable | 12:50 | [facility] | | | | + + + +------+ + + + + | Result panel 117 | + + + + + +--------+ + + | | 2022-08-10 | [facility] | 8.65 | (missing) | (missing) | | (unavailable | 12:50 | [facility] | | | | + + + +--------+ + + + + | Result panel 118 | + + + + + +-------+ + + | | 2022-08-10 | [facility] | 137 | (missing) | (missing) | | (unavailable | 12:50 | [facility] | | | | + + + +-------+ + + + + | Result panel 119 | + + + + + +-------+ + + | | 2022-08-10 | [facility] | 3.5 | (missing) | (missing) | | (unavailable | 12:50 | [facility] | | | | + + + +-------+ + + + + | Result panel 120 | + + + + + +-------+ + + | | 2022-08-10 | [facility] | 102 | (missing) | (missing) | | (unavailable | 12:50 | [facility] | | | | + + + +-------+ + + + + | Result panel 121 | + + + + + +------+ + + | | 2022-08-10 | [facility] | 23 | (missing) | (missing) | | (unavailable | 12:50 | [facility] | | | | + + + +------+ + + + + | Result panel 122 | + + + + + +--------+ + + | | 2022-08-10 | [facility] | 15.5 | (missing) | (missing) | | (unavailable | 12:50 | [facility] | | | | + + + +--------+ + + + + | Result panel 123 | + + + + + +-------+---------+ + | | 2022-08-10 | [facility] | 8.3 | mg/dL | (missing) | | (unavailable | 12:50 | [facility] | | | | + + + +-------+---------+ + + + | Result panel 124 | + + + + + +-------+ + + | | 2022-08-10 | [facility] | 7.3 | (missing) | (missing) | | (unavailable | 12:50 | [facility] | | | | + + + +-------+ + + + + | Result panel 125 | + + + + + +-------+ + + | | 2022-08-10 | [facility] | 3.2 | (missing) | (missing) | | (unavailable | 12:50 | [facility] | | | | + + + +-------+ + + + + | Result panel 126 | + + + + + +-------+ + + | | 2022-08-10 | [facility] | 4.1 | (missing) | (missing) | | (unavailable | 12:50 | [facility] | | | | + + + +-------+ + + + + | Result panel 127 | + + + + + +--------+ + + | | 2022-08-10 | [facility] | 0.78 | (missing) | (missing) | | (unavailable | 12:50 | [facility] | | | | + + + +--------+ + + + + | Result panel 128 | + + + + + +-------+ + + | | 2022-08-10 | [facility] | 0.5 | (missing) | (missing) | | (unavailable | 12:50 | [facility] | | | | + + + +-------+ + + + + | Result panel 129 | + + + + + +------+ + + | | 2022-08-10 | [facility] | 16 | (missing) | (missing) | | (unavailable | 12:50 | [facility] | | | | + + + +------+ + + + + | Result panel 130 | + + + + + +------+ + + | | 2022-08-10 | [facility] | 22 | (missing) | (missing) | | (unavailable | 12:50 | [facility] | | | | + + + +------+ + + + + | Result panel 131 | + + + + + +------+ + + | | 2022-08-10 | [facility] | 93 | (missing) | (missing) | | (unavailable | 12:50 | [facility] | | | | + + + +------+ + + + + | Result panel 132 | + + + + + +-------+ + + | | 2022-08-10 | [facility] | 1.2 | (missing) | (missing) | | (unavailable | 12:50 | [facility] | | | | + + + +-------+ + + + + | Result panel 133 | + + + + + +--------+ + + | | 2022-08-10 | [facility] | 17.8 | (missing) | (missing) | | (unavailable | 12:50 | [facility] | | | | + + + +--------+ + + + + | Result panel 134 | + + + + + + + + + | | 2022-08-10 | [facility] | SEE COMMENT | (missing) | (missing) | | (unavailable | 12:50 | [facility] | | | | + + + + + + + + + | Result panel 135 | + + + + + +--------+ + + | | 2022-08-10 | [facility] | 4.32 | (missing) | (missing) | | (unavailable | 12:50 | [facility] | | | | + + + +--------+ + + + + | Result panel 136 | + + + + + +--------+ + + | | 2022-08-10 | [facility] | 12.9 | (missing) | (missing) | | (unavailable | 12:50 | [facility] | | | | + + + +--------+ + + + + | Result panel 137 | + + + + + +--------+ + + | | 2022-08-10 | [facility] | 38.4 | (missing) | (missing) | | (unavailable | 12:50 | [facility] | | | | + + + +--------+ + + + + | Result panel 138 | + + + + + +--------+ + + | | 2022-08-10 | [facility] | 88.8 | (missing) | (missing) | | (unavailable | 12:50 | [facility] | | | | + + + +--------+ + + + + | Result panel 139 | + + + + + +--------+ + + | | 2022-08-10 | [facility] | 29.9 | (missing) | (missing) | | (unavailable | 12:50 | [facility] | | | | + + + +--------+ + + + + | Result panel 140 | + + + + + +--------+ + + | | 2022-08-10 | [facility] | 33.7 | (missing) | (missing) | | (unavailable | 12:50 | [facility] | | | | + + + +--------+ + + + + | Result panel 141 | + + + + + +--------+ + + | | 2022-08-10 | [facility] | 12.7 | (missing) | (missing) | | (unavailable | 12:50 | [facility] | | | | + + + +--------+ + + + + | Result panel 142 | + + + + + +-------+ + + | | 2022-08-10 | [facility] | 251 | (missing) | (missing) | | (unavailable | 12:50 | [facility] | | | | + + + +-------+ + + + + | Result panel 143 | + + + + + +--------+ + + | | 2022-08-10 | [facility] | 86.1 | (missing) | (missing) | | (unavailable | 12:50 | [facility] | | | | + + + +--------+ + + + + | Result panel 144 | + + + + + +-------+ + + | | 2022-08-10 | [facility] | 4.8 | (missing) | (missing) | | (unavailable | 12:50 | [facility] | | | | + + + +-------+ + + + + | Result panel 145 | + + + + + +-------+ + + | | 2022-08-10 | [facility] | 8.8 | (missing) | (missing) | | (unavailable | 12:50 | [facility] | | | | + + + +-------+ + + + + | Result panel 146 | + + + + + +-------+ + + | | 2022-08-10 | [facility] | 0.1 | (missing) | (missing) | | (unavailable | 12:50 | [facility] | | | | + + + +-------+ + + + + | Result panel 147 | + + + + + +-------+ + + | | 2022-08-10 | [facility] | 0.2 | (missing) | (missing) | | (unavailable | 12:50 | [facility] | | | | + + + +-------+ + + + + | Result panel 148 | + + + + + +-------+---------+ + | | 2022-08-10 | [facility] | 103 | mg/dL | (missing) | | (unavailable | 12:50 | [facility] | | | | + + + +-------+---------+ + + + | Result panel 149 | + + + + + +-----+---------+ + | | 2022-08-10 | [facility] | 9 | mg/dL | (missing) | | (unavailable | 12:50 | [facility] | | | | + + + +-----+---------+ + + + | Result panel 150 | + + + + + +--------+---------+ + | | 2022-08-10 | [facility] | 1.04 | mg/dL | (missing) | | (unavailable | 12:50 | [facility] | | | | + + + +--------+---------+ + + + | Result panel 151 | + + + + + +------+ + + | | 2022-08-10 | [facility] | 75 | (missing) | (missing) | | (unavailable | 12:50 | [facility] | | | | + + + +------+ + + + + | Result panel 152 | + + + + + +--------+ + + | | 2022-08-10 | [facility] | 8.65 | (missing) | (missing) | | (unavailable | 12:50 | [facility] | | | | + + + +--------+ + + + + | Result panel 153 | + + + + + +-------+ + + | | 2022-08-10 | [facility] | 137 | (missing) | (missing) | | (unavailable | 12:50 | [facility] | | | | + + + +-------+ + + + + | Result panel 154 | + + + + + +-------+ + + | | 2022-08-10 | [facility] | 3.5 | (missing) | (missing) | | (unavailable | 12:50 | [facility] | | | | + + + +-------+ + + + + | Result panel 155 | + + + + + +-------+ + + | | 2022-08-10 | [facility] | 102 | (missing) | (missing) | | (unavailable | 12:50 | [facility] | | | + + + +-------+ + + + + | Result panel 156 | + + + + + +------+ + + | | 2022-08-10 | [facility] | 23 | (missing) | (missing) | | (unavailable | 12:50 | [facility] | | | | + + + +------+ + + + + | Result panel 157 | + + + + + +--------+ + + | | 2022-08-10 | [facility] | 15.5 | (missing) | (missing) | | (unavailable | 12:50 | [facility] | | | | + + + +--------+ + + + + | Result panel 158 | + + + + + +-------+---------+ + | | 2022-08-10 | [facility] | 8.3 | mg/dL | (missing) | | (unavailable | 12:50 | [facility] | | | | + + + +-------+---------+ + + + | Result panel 159 | + + + + + +-------+ + + | | 2022-08-10 | [facility] | 7.3 | (missing) | (missing) | | (unavailable | 12:50 | [facility] | | | | + + + +-------+ + + + + | Result panel 160 | + + + + + +-------+ + + | | 2022-08-10 | [facility] | 3.2 | (missing) | (missing) | | (unavailable | 12:50 | [facility] | | | | + + + +-------+ + + + + | Result panel 161 | + + + + + +-------+ + + | | 2022-08-10 | [facility] | 4.1 | (missing) | (missing) | | (unavailable | 12:50 | [facility] | | | | + + + +-------+ + + + + | Result panel 162 | + + + + + +--------+ + + | | 2022-08-10 | [facility] | 0.78 | (missing) | (missing) | | (unavailable | 12:50 | [facility] | | | | + + + +--------+ + + + + | Result panel 163 | + + + + + +-------+ + + | | 2022-08-10 | [facility] | 0.5 | (missing) | (missing) | | (unavailable | 12:50 | [facility] | | | | + + + +-------+ + + + + | Result panel 164 | + + + + + +------+ + + | | 2022-08-10 | [facility] | 16 | (missing) | (missing) | | (unavailable | 12:50 | [facility] | | | | + + + +------+ + + + + | Result panel 165 | + + + + + +------+ + + | | 2022-08-10 | [facility] | 22 | (missing) | (missing) | | (unavailable | 12:50 | [facility] | | | | + + + +------+ + + + + | Result panel 166 | + + + + + +------+ + + | | 2022-08-10 | [facility] | 93 | (missing) | (missing) | | (unavailable | 12:50 | [facility] | | | | + + + +------+ + + + + | Result panel 167 | + + + + + +-------+ + + | | 2022-08-10 | [facility] | 1.2 | (missing) | (missing) | | (unavailable | 12:50 | [facility] | | | | + + + +-------+ + + + + | Result panel 168 | + + + + + + + + + | | 2022-10-18 | [facility] | NEGATIVE | (missing) | (missing) | | (unavailable | 15:23:08 | [facility] | | | | + + + + + + + + + | Result panel 169 | + + + + + + + + + | | 2022-10-18 | [facility] | POSITIVE | (missing) | (missing) | | (unavailable | 15:23:08 | [facility] | | | | + + + + + + + + + | Result panel 170 | + + + + + + + + + | | 2022-10-18 | [facility] | NEGATIVE | (missing) | (missing) | | (unavailable | 15:23:08 | [facility] | | | | + + + + + + + + + | Result panel 171 | + + + + + + + + + | | 2022-10-18 | [facility] | NEGATIVE | (missing) | (missing) | | (unavailable | 15:23:08 | [facility] | | | | + + + + + + + + + | Result panel 172 | + + + + + + + + + | | 2022-11-18 | [facility] | NEGATIVE | (missing) | (missing) | | (unavailable | 20:15:08 | [facility] | | | | + + + + + + + + + | Result panel 173 | + + + + + + + + + | | 2022-11-18 | [facility] | NEGATIVE | (missing) | (missing) | | (unavailable | 20:15:08 | [facility] | | | | + + + + + + + + + | Result panel 174 | + + + + + + + + + | | 2022-11-18 | [facility] | NEGATIVE | (missing) | (missing) | | (unavailable | 20:15:08 | [facility] | | | | + + + + + + + + + | Result panel 175 | + + + + + + + + + | | 2022-11-18 | [facility] | NEGATIVE | (missing) | (missing) | | (unavailable | 20:15:08 | [facility] | | | | + + + + + + + + + | Result panel 176 | + + + + + +--------+ + + | | 2022-11-18 | [facility] | 11.1 | (missing) | (missing) | | (unavailable | 22:22:08 | [facility] | | | | + + + +--------+ + + + + | Result panel 177 | + + + + + +-------+---------+ + | | 2022-11-18 | [facility] | 9.1 | mg/dL | (missing) | | (unavailable | 22:22:08 | [facility] | | | | + + + +-------+---------+ + + + | Result panel 178 | + + + + + +-------+ + + | | 2022-11-18 | [facility] | 7.9 | (missing) | (missing) | | (unavailable | 22:22:08 | [facility] | | | | + + + +-------+ + + + + | Result panel 179 | + + + + + +-------+ + + | | 2022-11-18 | [facility] | 3.3 | (missing) | (missing) | | (unavailable | 22:22:08 | [facility] | | | | + + + +-------+ + + + + | Result panel 180 | + + + + + +-------+ + + | | 2022-11-18 | [facility] | 4.6 | (missing) | (missing) | | (unavailable | 22::08 | [facility] | | | | + + + +-------+ + + + + | Result panel 181 | + + + + + +--------+ + + | | 2022-11-18 | [facility] | 0.72 | (missing) | (missing) | | (unavailable | 22::08 | [facility] | | | | + + + +--------+ + + + + | Result panel 182 | + + + + + +-------+ + + | | 2022-11-18 | [facility] | 0.3 | (missing) | (missing) | | (unavailable | 22::08 | [facility] | | | | + + + +-------+ + + + + | Result panel 183 | + + + + + +------+ + + | | 2022-11-18 | [facility] | 23 | (missing) | (missing) | | (unavailable | 22:22:08 | [facility] | | | | + + + +------+ + + + + | Result panel 184 | + + + + + +------+ + + | | 2022-11-18 | [facility] | 25 | (missing) | (missing) | | (unavailable | 22::08 | [facility] | | | | + + + +------+ + + + + | Result panel 185 | + + + + + +------+ + + | | 2022-11-18 | [facility] | 76 | (missing) | (missing) | | (unavailable | 22::08 | [facility] | | | | + + + +------+ + + + + | Result panel 186 | + + + + + +-------+ + + | | 2022-11-18 | [facility] | 286 | (missing) | (missing) | | (unavailable | 22:22:08 | [facility] | | | | + + + +-------+ + + + + | Result panel 187 | + + + + + +-------+ + + | | 2022-11-18 | [facility] | 9.6 | (missing) | (missing) | | (unavailable | 22:22:08 | [facility] | | | | + + + +-------+ + + + + | Result panel 188 | + + + + + +--------+ + + | | 2022-11-18 | [facility] | 4.83 | (missing) | (missing) | | (unavailable | 22:22:08 | [facility] | | | | + + + +--------+ + + + + | Result panel 189 | + + + + + +--------+ + + | | 2022-11-18 | [facility] | 14.2 | (missing) | (missing) | | (unavailable | 22:22:08 | [facility] | | | | + + + +--------+ + + + + | Result panel 190 | + + + + + +--------+ + + | | 2022-11-18 | [facility] | 42.3 | (missing) | (missing) | | (unavailable | 22:22:08 | [facility] | | | | + + + +--------+ + + + + | Result panel 191 | + + + + + +--------+ + + | | 2022-11-18 | [facility] | 87.5 | (missing) | (missing) | | (unavailable | 22:22:08 | [facility] | | | | + + + +--------+ + + + + | Result panel 192 | + + + + + +--------+ + + | | 2022-11-18 | [facility] | 29.3 | (missing) | (missing) | | (unavailable | 22:22:08 | [facility] | | | | + + + +--------+ + + + + | Result panel 193 | + + + + + +--------+ + + | | 2022-11-18 | [facility] | 33.5 | (missing) | (missing) | | (unavailable | 22:22:08 | [facility] | | | | + + + +--------+ + + + + | Result panel 194 | + + + + + +--------+ + + | | 2022-11-18 | [facility] | 13.8 | (missing) | (missing) | | (unavailable | 22:22:08 | [facility] | | | | + + + +--------+ + + + + | Result panel 195 | + + + + + +-------+ + + | | 2022-11-18 | [facility] | 289 | (missing) | (missing) | | (unavailable | 22:22:08 | [facility] | | | | + + + +-------+ + + + + | Result panel 196 | + + + + + +--------+ + + | | 2022-11-18 | [facility] | 68.8 | (missing) | (missing) | | (unavailable | 22:22:08 | [facility] | | | | + + + +--------+ + + + + | Result panel 197 | + + + + + +--------+ + + | | 2022-11-18 | [facility] | 21.0 | (missing) | (missing) | | (unavailable | 22:22:08 | [facility] | | | | + + + +--------+ + + + + | Result panel 198 | + + + + + +-------+ + + | | 2022-11-18 | [facility] | 8.3 | (missing) | (missing) | | (unavailable | 22:22:08 | [facility] | | | | + + + +-------+ + + + + | Result panel 199 | + + + + + +-------+ + + | | 2022-11-18 | [facility] | 1.1 | (missing) | (missing) | | (unavailable | 22:22:08 | [facility] | | | | + + + +-------+ + + + + | Result panel 200 | + + + + + +-------+ + + | | 2022-11-18 | [facility] | 0.8 | (missing) | (missing) | | (unavailable | 22:22:08 | [facility] | | | | + + + +-------+ + + + + | Result panel 201 | + + + + + +------+---------+ + | | 2022-11-18 | [facility] | 92 | mg/dL | (missing) | | (unavailable | ::08 | [facility] | | | | + + + +------+---------+ + + + | Result panel 202 | + + + + + +-----+---------+ + | | 2022-11-18 | [facility] | 6 | mg/dL | (missing) | | (unavailable | 22:22:08 | [facility] | | | | + + + +-----+---------+ + + + | Result panel 203 | + + + + + +--------+---------+ + | | 2022-11-18 | [facility] | 0.89 | mg/dL | (missing) | | (unavailable | 22::08 | [facility] | | | | + + + +--------+---------+ + + + | Result panel 204 | + + + + + +------+ + + | | 2022-11-18 | [facility] | 91 | (missing) | (missing) | | (unavailable | 22:22:08 | [facility] | | | | + + + +------+ + + + + | Result panel 205 | + + + + + +--------+ + + | | 2022-11-18 | [facility] | 6.74 | (missing) | (missing) | | (unavailable | 22:22:08 | [facility] | | | | + + + +--------+ + + + + | Result panel 206 | + + + + + +-------+ + + | | 2022-11-18 | [facility] | 136 | (missing) | (missing) | | (unavailable | 22:22:08 | [facility] | | | | + + + +-------+ + + + + | Result panel 207 | + + + + + +-------+ + + | | 2022-11-18 | [facility] | 3.1 | (missing) | (missing) | | (unavailable | 22:22:08 | [facility] | | | | + + + +-------+ + + + + | Result panel 208 | + + + + + +-------+ + + | | 2022-11-18 | [facility] | 100 | (missing) | (missing) | | (unavailable | 22:22:08 | [facility] | | | | + + + +-------+ + + + + | Result panel 209 | + + + + + +------+ + + | | 2022-11-18 | [facility] | 28 | (missing) | (missing) | | (unavailable | 22:22:08 | [facility] | | | | + + + +------+ + + + + | Result panel 210 | + + + + + + + + + | | 2022-11-18 | [facility] | NEGATIVE | (missing) | (missing) | | (unavailable | 22:36:08 | [facility] | | | | + + + + + + + + + | Result panel 211 | + + + + + + + + + | | 2022-11-18 | [facility] | YELLOW | (missing) | (missing) | | (unavailable | 22:36:08 | [facility] | | | | + + + + + + + + + | Result panel 212 | + + + + + +---------+ + + | | 2022-11-18 | [facility] | CLEAR | (missing) | (missing) | | (unavailable | 22:36:08 | [facility] | | | | + + + +---------+ + + + + | Result panel 213 | + + + + + + + + + | | 2022-11-18 | [facility] | NEGATIVE | (missing) | (missing) | | (unavailable | :36:08 | [facility] | | | | + + + + + + + + + | Result panel 214 | + + + + + + + + + | | 2022-11-18 | [facility] | NEGATIVE | (missing) | (missing) | | (unavailable | 22:36:08 | [facility] | | | | + + + + + + + + + | Result panel 215 | + + + + + +---------+ + + | | 2022-11-18 | [facility] | SMALL | (missing) | (missing) | | (unavailable | 22:36:08 | [facility] | | | | + + + +---------+ + + + + | Result panel 216 | + + + + + +---------+ + + | | 2022-11-18 | [facility] | 1.025 | (missing) | (missing) | | (unavailable | 22:36:08 | [facility] | | | | + + + +---------+ + + + + | Result panel 217 | + + + + + + + + + | | 2022-11-18 | [facility] | MODERATE | (missing) | (missing) | | (unavailable | 22:36:08 | [facility] | | | | + + + + + + + + + | Result panel 218 | + + + + + +-------+ + + | | 2022-11-18 | [facility] | 5.5 | (missing) | (missing) | | (unavailable | 22:36:08 | [facility] | | | | + + + +-------+ + + + + | Result panel 219 | + + + + + + + + + | | 2022-11-18 | [facility] | NEGATIVE | (missing) | (missing) | | (unavailable | 22:36:08 | [facility] | | | | + + + + + + + + + | Result panel 220 | + + + + + + + + + | | 2022-11-18 | [facility] | NORMAL | (missing) | (missing) | | (unavailable | 22:36:08 | [facility] | | | | + + + + + + + + + | Result panel 221 | + + + + + + + + + | | 2022-11-18 | [facility] | NEGATIVE | (missing) | (missing) | | (unavailable | 22:36:08 | [facility] | | | | + + + + + + + + + | Result panel 222 | + + + + + + + + + | | 2022-11-18 | [facility] | NEGATIVE | (missing) | (missing) | | (unavailable | 22:36:08 | [facility] | | | | + + + + + + + + + | Result panel 223 | + + + + + +-------+ + + | | 2022-11-18 | [facility] | 2-3 | (missing) | (missing) | | (unavailable | 22:36:08 | [facility] | | | | + + + +-------+ + + + + | Result panel 224 | + + + + + +-------+ + + | | 2022-11-18 | [facility] | 2-3 | (missing) | (missing) | | (unavailable | 22:36:08 | [facility] | | | | + + + +-------+ + + + + | Result panel 225 | + + + + + + + + + | | 2022-11-18 | [facility] | SQUAMOUS 2+ | (missing) | (missing) | | (unavailable | 22:36:08 | [facility] | | | | + + + + + + + + + | Result panel 226 | + + + + + + + + + | | 2022-11-18 | [facility] | NONE SEEN | (missing) | (missing) | | (unavailable | 22:36:08 | [facility] | | | | + + + + + + + + + | Result panel 227 | + + + + + +--------+ + + | | 2022-11-18 | [facility] | RARE | (missing) | (missing) | | (unavailable | 22:36:08 | [facility] | | | | + + + +--------+ + + + + | Result panel 228 | + + + + + + + + + | | 2022-11-18 | [facility] | NONE SEEN | (missing) | (missing) | | (unavailable | 22:36:08 | [facility] | | | | + + + + + + + + + | Result panel 229 | + + + + + +------+ + + | | 2022-11-18 | [facility] | No | (missing) | (missing) | | (unavailable | 22:36:08 | [facility] | | | | + + + +------+ + + + + | Result panel 230 | + + + + + + + + + | | 2022-11-18 | [facility] | CLEAN CATCH | (missing) | (missing) | | (unavailable | 22:36:08 | [facility] | | | | + + + + + + + + + | Result panel 231 | + + + + + +--------+ + + | | 2023-05-19 | [facility] | 10.3 | (missing) | (missing) | | (unavailable | [facility]44:07 [facility] | | | | + + + +--------+ + + + + | Result panel 232 | + + + + + +--------+ + + | | 2023-05-19 | [facility] | 69.7 | (missing) | (missing) | | (unavailable | [facility]44[facility]07 [facility] | | | | + + + +--------+ + + + + | Result panel 233 | + + + + + +--------+ + + | | 2023-05-19 | [facility] | 18.8 | (missing) | (missing) | | (unavailable | [facility]44[facility]07 [facility] | | | | + + + +--------+ + + + + | Result panel 234 | + + + + + +-------+ + + | | 2023-05-19 | [facility] | 8.3 | (missing) | (missing) | | (unavailable | [facility]44:07 [facility] | | | | + + + +-------+ + + + + | Result panel 235 | + + + + + +-------+ + + | | 2023-05-19 | [facility] | 2.3 | (missing) | (missing) | | (unavailable | [facility]44[facility]07 [facility] | | | | + + + +-------+ + + + + | Result panel 236 | + + + + + +-------+ + + | | 2023-05-19 | [facility] | 0.9 | (missing) | (missing) | | (unavailable | [facility]44[facility]07 [facility] | | | + + + +-------+ + + + + | Result panel 237 | + + + + + +--------+ + + | | 2023-05-19 | [facility] | 4.36 | (missing) | (missing) | | (unavailable | [facility]44[facility]07 [facility] | | | + + + +--------+ + + + + | Result panel 238 | + + + + + +--------+ + + | | 2023-05-19 | [facility] | 13.2 | (missing) | (missing) | | (unavailable | [facility]44[facility]07 [facility] | | | + + + +--------+ + + + + | Result panel 239 | + + + + + +------+---------+ + | | 2023-05-19 | [facility] | 66 | mg/dL | (missing) | | (unavailable | [facility]44:07 [facility] | | | + + + +------+---------+ + + + | Result panel 240 | + + + + + +------+---------+ + | | 2023-05-19 | [facility] | 13 | mg/dL | (missing) | | (unavailable | [facility]44[facility]07 [facility] | | | + + + +------+---------+ + + + | Result panel 241 | + + + + + +--------+---------+ + | | 2023-05-19 | [facility] | 1.03 | mg/dL | (missing) | | (unavailable | [facility]44[facility]07 [facility] | | | + + + +--------+---------+ + + + | Result panel 242 | + + + + + +------+ + + | | 2023-05-19 | [facility] | 75 | (missing) | (missing) | | (unavailable | [facility]44:07 [facility] | | | | + + + +------+ + + + + | Result panel 243 | + + + + + +---------+ + + | | 2023-05-19 | [facility] | 12.62 | (missing) | (missing) | | (unavailable | [facility]44:07 [facility] | | | | + + + +---------+ + + + + | Result panel 244 | + + + + + +--------+ + + | | 2023-05-19 | [facility] | 38.6 | (missing) | (missing) | | (unavailable | [facility]44[facility]07 [facility] | | | | + + + +--------+ + + + + | Result panel 245 | + + + + + +-------+ + + | | 2023-05-19 | [facility] | 140 | (missing) | (missing) | | (unavailable | [facility]44[facility]07 [facility] | | | | + + + +-------+ + + + + | Result panel 246 | + + + + + +-------+ + + | | 2023-05-19 | [facility] | 3.7 | (missing) | (missing) | | (unavailable | [facility]44[facility]07 [facility] | | | | + + + +-------+ + + + + | Result panel 247 | + + + + + +-------+ + + | | 2023-05-19 | [facility] | 105 | (missing) | (missing) | | (unavailable | [facility]44[facility]07 [facility] | | | + + + +-------+ + + + + | Result panel 248 | + + + + + +------+ + + | | 2023-05-19 | [facility] | 27 | (missing) | (missing) | | (unavailable | [facility]44[facility]07 [facility] | | | + + + +------+ + + + + | Result panel 249 | + + + + + +--------+ + + | | 2023-05-19 | [facility] | 11.7 | (missing) | (missing) | | (unavailable | [facility]44[facility]07 [facility] | | | + + + +--------+ + + + + | Result panel 250 | + + + + + +-------+---------+ + | | 2023-05-19 | [facility] | 8.6 | mg/dL | (missing) | | (unavailable | [facility]44:07 [facility] | | | + + + +-------+---------+ + + + | Result panel 251 | + + + + + +-------+---------+ + | | 2023-05-19 | [facility] | 1.9 | mg/dL | (missing) | | (unavailable | [facility]44:07 [facility] | | | | + + + +-------+---------+ + + + | Result panel 252 | + + + + + +-------+ + + | | 2023-05-19 | [facility] | 7.7 | (missing) | (missing) | | (unavailable | [facility]44[facility]07 [facility] | | | | + + + +-------+ + + + + | Result panel 253 | + + + + + +-------+ + + | | 2023-05-19 | [facility] | 3.6 | (missing) | (missing) | | (unavailable | [facility]44:07 [facility] | | | | + + + +-------+ + + + + | Result panel 254 | + + + + + +-------+ + + | | 2023-05-19 | [facility] | 4.1 | (missing) | (missing) | | (unavailable | [facility]44:07 [facility] | | | + + + +-------+ + + + + | Result panel 255 | + + + + + +--------+ + + | | 2023-05-19 | [facility] | 88.6 | (missing) | (missing) | | (unavailable | [facility]44[facility]07 [facility] | | | + + + +--------+ + + + + | Result panel 256 | + + + + + +--------+ + + | | 2023-05-19 | [facility] | 0.88 | (missing) | (missing) | | (unavailable | [facility]44:07 [facility] | | | + + + +--------+ + + + + | Result panel 257 | + + + + + +-------+ + + | | 2023-05-19 | [facility] | 0.3 | (missing) | (missing) | | (unavailable | [facility]44[facility]07 [facility] | | | + + + +-------+ + + + + | Result panel 258 | + + + + + +------+ + + | | 2023-05-19 | [facility] | 19 | (missing) | (missing) | | (unavailable | [facility]44[facility]07 [facility] | | | + + + +------+ + + + + | Result panel 259 | + + + + + +------+ + + | | 2023-05-19 | [facility] | 30 | (missing) | (missing) | | (unavailable | [facility]44[facility]07 [facility] | | | + + + +------+ + + + + | Result panel 260 | + + + + + +------+ + + | | 2023-05-19 | [facility] | 91 | (missing) | (missing) | | (unavailable | [facility]44[facility]07 [facility] | | | + + + +------+ + + + + | Result panel 261 | + + + + + +------+ + + | | 2023-05-19 | [facility] | 78 | (missing) | (missing) | | (unavailable | [facility]44:07 [facility] | | | + + + +------+ + + + + | Result panel 262 | + + + + + + + + + | | 2023-05-19 | [facility] | NEGATIVE | (missing) | (missing) | | (unavailable | [facility]44[facility]07 [facility] | | | + + + + + + + + + | Result panel 263 | + + + + + +--------+ + + | | 2023-05-19 | [facility] | 30.3 | (missing) | (missing) | | (unavailable | [facility]44:07 [facility] | | | + + + +--------+ + + + + | Result panel 264 | + + + + + +--------+ + + | | 2023-05-19 | [facility] | 34.2 | (missing) | (missing) | | (unavailable | [facility]44[facility]07 [facility] | | | + + + +--------+ + + + + | Result panel 265 | + + + + + +--------+ + + | | 2023-05-19 | [facility] | 14.1 | (missing) | (missing) | | (unavailable | [facility]44[facility]07 [facility] | | | + + + +--------+ + + + + | Result panel 266 | + + + + + +-------+ + + | | 2023-05-19 | [facility] | 266 | (missing) | (missing) | | (unavailable | [facility]44:07 [facility] | | | + + + +-------+ + + + + | Result panel 267 | + + + + + + + + + | | 2023-05-19 | [facility] | YELLOW | (missing) | (missing) | | (unavailable | 18:01:07 [facility] | | | | + + + + + + + + + | Result panel 268 | + + + + + + + + + | | 2023-05-19 | [facility] | SL CLOUDY | (missing) | (missing) | | (unavailable | 18:01:07 [facility] | | | | + + + + + + + + + | Result panel 269 | + + + + + + + + + | | 2023-05-19 | [facility] | NEGATIVE | (missing) | (missing) | | (unavailable | 18[facility]01:07 [facility] | | | + + + + + + + + + | Result panel 270 | + + + + + + + + + | | 2023-05-19 | [facility] | NEGATIVE | (missing) | (missing) | | (unavailable | 18:: | [facility] | | | | + + + + + + + + + | Result panel 271 | + + + + + + + + + | | 2023-05-19 | [facility] | NEGATIVE | (missing) | (missing) | | (unavailable | 18::07 | [facility] | | | | + + + + + + + + + | Result panel 272 | + + + + + +---------+ + + | | 2023-05-19 | [facility] | 1.025 | (missing) | (missing) | | (unavailable | 18[facility]01:07 [facility] | | | | + + + +---------+ + + + + | Result panel 273 | + + + + + + + + + | | 2023-05-19 | [facility] | TRACE-I | (missing) | (missing) | | (unavailable | 18:01:07 [facility] | | | | + + + + + + + + + | Result panel 274 | + + + + + +-------+ + + | | 2023-05-19 | [facility] | 6.5 | (missing) | (missing) | | (unavailable | 18[facility]01:07 [facility] | | | | + + + +-------+ + + + + | Result panel 275 | + + + + + + + + + | | 2023-05-19 | [facility] | NEGATIVE | (missing) | (missing) | | (unavailable | 18[facility]01:07 [facility] | | | | + + + + + + + + + | Result panel 276 | + + + + + +-------+ + + | | 2023-05-19 | [facility] | 1.0 | (missing) | (missing) | | (unavailable | 18[facility]01:07 [facility] | | | | + + + +-------+ + + + + | Result panel 277 | + + + + + + + + + | | 2023-05-19 | [facility] | NEGATIVE | (missing) | (missing) | | (unavailable | 18:01:07 [facility] | | | | + + + + + + + + + | Result panel 278 | + + + + + + + + + | | 2023-05-19 | [facility] | MODERATE | (missing) | (missing) | | (unavailable | 18:01:07 [facility] | | | | + + + + + + + + + | Result panel 279 | + + + + + +-------+ + + | | 2023-05-19 | [facility] | 2-3 | (missing) | (missing) | | (unavailable | [facility]01:07 [facility] | | | | + + + +-------+ + + + + | Result panel 280 | + + + + + +-------+ + + | | 2023-05-19 | [facility] | 4-6 | (missing) | (missing) | | (unavailable | [facility]:01:07 [facility] | | | | + + + +-------+ + + + + | Result panel 281 | + + + + + + + + + | | 2023-05-19 | [facility] | SQUAMOUS 3+ | (missing) | (missing) | | (unavailable | 18:01:07 [facility] | | | | + + + + + + + + + | Result panel 282 | + + + + + + + + + | | 2023-05-19 | [facility] | NONE SEEN | (missing) | (missing) | | (unavailable | [facility]01:07 [facility] | | | + + + + + + + + + | Result panel 283 | + + + + + +--------+ + + | | 2023-05-19 | [facility] | RARE | (missing) | (missing) | | (unavailable | [facility]01:07 [facility] | | | + + + +--------+ + + + + | Result panel 284 | + + + + + + + + + | | 2023-05-19 | [facility] | NONE SEEN | (missing) | (missing) | | (unavailable | [facility]01:07 [facility] | | | | + + + + + + + + + | Result panel 285 | + + + + + +------+ + + | | 2023-05-19 | [facility] | No | (missing) | (missing) | | (unavailable | [facility]01:07 [facility] | | | | + + + +------+ + + + + | Result panel 286 | + + + + + + + + + | | 2023-05-19 | [facility] | CLEAN CATCH | (missing) | (missing) | | (unavailable | [facility]01:07 [facility] | | | | + + + + + + + Social History No information. Vital [...] 385.81 | lb | + + + +---------+ | 2023-05-19 00:00 | BMI | 30.3 | kg/m2 | + + + +---------+ | 2023-05-19 00:00 | BP_diastolic | 96 | mmHg | + + + +---------+ | 2023-05-19 00:00 | BP_systolic | 128 | mmHg | + + + +---------+ | 2023-05-19 00:00 | heart_rate | 68 | /min | + + + +---------+ | 2023-05-19 00:00 | height_metric | 152.4 | cm | + + + +---------+ | 2023-05-19 00:00 | height_standard | 60 | in | + + + +---------+ | 2023-05-19 00:00 | o2_saturation | 99 | % | + + + +---------+ | 2023-05-19 00:00 | respiration_rate | 20 | /min | + + + +---------+ | 2023-05-19 00:00 | temperature_metric | 37.22 | C | | | | | | + + + +---------+ | 2023-05-19 00:00 | | 99 | F | | | temperature_standar | | | | | d | | | + + + +---------+ | 2023-05-19 00:00 | weight_metric | 70.31 | kg | + + + +---------+ | 2023-05-19 00:00 | weight_standard | 155 | lb | + + + +---------+ | 2023-05-19 00:00 | weight_standard | 155.01 | lb | + + + +---------+"
[~2023-05-22 22:40] MED LIST changes: +VENTOLIN HFA18 GM INH
--- OUTSIDE RECORDS SUMMARY | 2023-05-22 22:49 | XMS ---
PreManage Notification: FRANK BARRETO [employer] Hel[employer] Events No recent Security Events currently on file CRITERIA MET - [facility] - 2 Visits in 30 Days CARE PROVIDERS -Erika- Dentist: [employer] [employer] [facility] PHONE: [phone] LEIGHANN VICTORIA Physician 08/08/2021-Current PHONE: Unknown Jocelyne has no Care Guidelines for this patient. Javier VISIT COUNT (12 MO.) [address] [place] [address] TOTAL 7 NOTE: Visits indicate total known visits. ED/UCC VISIT TRACKING (12 MO.) 05/22/2023 22:[address] [facility] [place] TYPE: Emergency COMPLAINT: - CHEST PAIN 05/19/2023 15:40 [facility] [place] TYPE: Emergency COMPLAINT: - ABDOMINAL PAIN DIAGNOSES: - Allergy status to penicillin - Diarrhea, unspecified - Nausea - Other [facility] (current) drug therapy - Right upper quadrant pain 11/18/2022 19:[address] [facility] [place] TYPE: Emergency COMPLAINT: - DIZZINESS,HEADACHE DIAGNOSES: - Allergy status to penicillin - Contact with and (suspected) exposure to COVID-19 - Nausea with vomiting, unspecified - Noninfective gastroenteritis and colitis, unspecified - Urinary tract infection, site not specified 10/18/2022 15:[address] [facility] [place] TYPE: Emergency COMPLAINT: - ABD PAIN, COUGH, VOMITING DIAGNOSES: - Allergy status to penicillin - Contact with and (suspected) exposure to COVID-19 - Fever, unspecified - Influenza due to other identified influenza virus with other respiratory manifestations - Other [facility] (current) drug therapy 08/12/2022 17:[address] [facility] [place] TYPE: Emergency COMPLAINT: - SHORTNESS OF BREATH DIAGNOSES: - Procedure and treatment not carried out due to patient leaving prior to being seen by health care provider 08/10/2022 12:[address] 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
[2023-05-23] MEDS ORDERED: IBU800 MG PO (02:49)
[2023-05-23 02:56] VITALS: BP 99/70
--- NOTE | 2023-05-25 06:48 | EKG ---
[facility] [address] [facility] [place] [address] Signed Sinus rhythm with marked sinus arrhythmia Otherwise normal ECG No previous ECGs available Confirmed by HOA NEELY MD ([id number]) on 05/25/2023 6:48:15 AM Electronically Signed By: HOA NEELY 05/25/23 0648 PATIENT NAME: FRANK BARRETO Electrocardiogram DATE OF : 89 PHYSICIAN: HOA NEELY REPORT #: [id number] REPORT IS CONFIDENTIAL AND NOT TO BE RELEASED WITHOUT AUTHORIZATION
== END 2023-05-23 02:57 | disposition home or self-care (01) ==
LOC: ED 22:40
DX: R09.1 Pleurisy (principal); Z88.0 Allergy status to penicillin; Z79.899 Other long term (current) drug therapy
CPT/HCPCS: 36415; 71045; 71260; 76705; 80053; 81001; 83690; 83735; 84484; 84703; 85025; 85379; 93005; 93010; J1885; J7121; Q9967

== ENCOUNTER 2023-09-22 08:25 | Emergency (ER) | payer OTHER ==
[~2023-09-22] VITALS: Ht 152.4 cm; Wt 77.8 kg
[~2023-09-22 08:25] MED LIST changes: +IBU800 MG PO
[2023-09-22 09:21] LABS: INFLUENZA B NAA NEGATIVE (NEGATIVE); RESPIRATORY SYNCYTIAL VIR NAA NEGATIVE (NEGATIVE)
[2023-09-22 10:25] VITALS: BP 99/83
== END 2023-09-22 10:29 | disposition home or self-care (01) ==
LOC: ED 08:25
PROVIDERS: Emergency Medicine
DX: J06.9 Acute upper respiratory infection, unspecified (principal); J45.909 Unspecified asthma, uncomplicated; Z88.0 Allergy status to penicillin; Z20.822 Contact with and (suspected) exposure to COVID-19
CPT/HCPCS: 71045; 87502; 94640; 94664; 99283-25; C9803; U0002

== ENCOUNTER 2025-01-04 13:31 | Emergency (ER) | payer OTHER ==
[~2025-01-04] VITALS: Ht 152.4 cm; Wt 74.8 kg
[2025-01-04] MEDS ORDERED: MORPHINE SULFATE 4 MG/ML VIAL IV ONE (14:00)
[2025-01-04] MEDS ORDERED: SODIUM CHLORIDE 0.9% 1,000 ML IV ONE (14:00)
[2025-01-04 14:21] LABS: BILIRUBIN, URINE NEGATIVE (negative); BLOOD/HGB, URINE LARGE (Negative); HEMOGLOBIN 14.9 g/dL (12.0-18.0); KETONE, URINE SMALL (Negative); LEUK ESTERASE, URINE LARGE (negative); NITRITE, URINE POSITIVE (negative)
[2025-01-04 14:23] LABS: BASOPHILS 0.6 % (0-2); HEMATOCRIT 42.4 % (35.0-50.0); LYMPHOCYTES 14.5 % (24-44); MCH 31.4 (27-36); MCHC 35.1 g/dl (30-36); MCV 89.4 fl (81-99); MONOCYTES 8.8 % (0-12); NEUTROPHILS 73.1 % (39-80); PLATELET COUNT 274 K/uL (140-440); RBC 4.75 M/ul (4.3-5.7); RDW 12.9 (10.5-15.0)
[2025-01-04 14:26] LABS: WHITE BLOOD CELLS, URINE >50 /HPF (0-5)
[2025-01-04 14:27] LABS: BACTERIA, URINE 1+ /hpf (negative); CASTS, URINE NONE SEEN \\lpf; COLLECTION TYPE, URINE CLEAN CATCH; CRYSTALS, URINE NONE SEEN (0-1+); EPITHELIAL CELLS, URINE NONE SEEN /lpf (0-1+); REFLEX CULTURE, URINE Yes (No)
[2025-01-04 14:43] LABS: ALBUMIN 3.8 g/dL (3.4-5.0); ALBUMIN/GLOBULIN RATIO 0.93 (1.1-2.4); ANION GAP 15.7 (7-21); BILIRUBIN, TOTAL 0.9 mg/dL (0.2-1.0); CALCIUM 9.4 mg/dL (8.5-10.1); POTASSIUM 3.7 mmol/L (3.5-5.1); PROTEIN, TOTAL 7.9 g/dL (6.4-8.2)
[2025-01-04] MEDS ORDERED: CEPHALEXIN500 M1 PO (15:37)
[2025-01-04] MEDS ORDERED: CEPHALEXIN MONOHYDRATE 500 MG CAP PO ONE (15:45)
[2025-01-04 15:53] VITALS: BP 105/70
== END 2025-01-04 15:55 | disposition home or self-care (01) ==
LOC: ED 13:31
PROVIDERS: Emergency Medicine
DX: N39.0 Urinary tract infection, site not specified (principal); Z88.0 Allergy status to penicillin; Z79.899 Other long term (current) drug therapy
CPT/HCPCS: 36415; 74177; 80053; 81001; 83690; 84703; 85025; 87088; 87186; 96361; 99284-25; A9270; J2270; J7030; Q9967

== ENCOUNTER 2025-02-28 05:58 | Emergency (ER) | payer OTHER ==
[~2025-02-28] VITALS: Ht 152.4 cm; Wt 70.0 kg
[~2025-02-28 05:58] MED LIST changes: +CEPHALEXIN500 M1 PO
[2025-02-28 06:15] LABS: BASOPHILS 0.2 % (0-2); EOSINOPHILS 3.6 % (0-6); HEMATOCRIT 41.6 % (35.0-50.0); HEMOGLOBIN 14.6 g/dL (12.0-18.0); LYMPHOCYTES 9.4 % (24-44); MCH 31.3 (27-36); MCHC 35.2 g/dl (30-36); MCV 88.8 fl (81-99); NEUTROPHILS 79.8 % (39-80); PLATELET COUNT 224 K/uL (140-440); RBC 4.68 M/ul (4.3-5.7); RDW 13.6 (10.5-15.0)
[2025-02-28] MEDS ORDERED: methylPREDNISolone SOD SUCC 125 MG/2 ML VIAL IV ONE (06:15)
[2025-02-28] MEDS ORDERED: ALBUTEROL/IPRATROPIUM 3 ML NEB INH ONE (06:15)
[2025-02-28 06:31] LABS: ALBUMIN 3.8 g/dL (3.4-5.0); ALBUMIN/GLOBULIN RATIO 1.03 (1.1-2.4); ANION GAP 11.8 (7-21); BILIRUBIN, TOTAL 0.6 mg/dL (0.2-1.0); BUN/CREATININE RATIO 10.18 (6.0-28.6); CALCIUM 8.7 mg/dL (8.5-10.1); CREATININE, SERUM 1.08 mg/dL (0.55-1.02); POTASSIUM 3.8 mmol/L (3.5-5.1); PROTEIN, TOTAL 7.5 g/dL (6.4-8.2)
[2025-02-28] MEDS ORDERED: methylPREDNISolone 4 MG HOME.PACK PO ONE (06:45)
[2025-02-28 06:55] VITALS: BP 119/79
== END 2025-02-28 06:55 | disposition home or self-care (01) ==
LOC: ED 05:58
PROVIDERS: Emergency Medicine
DX: J45.901 Unspecified asthma with (acute) exacerbation (principal); Z88.0 Allergy status to penicillin
CPT/HCPCS: 36415; 71045; 80053; 85025; 94640; 96374; 99285-25; J2919

== ENCOUNTER 2025-08-07 08:20 | Emergency (ER) | payer OTHER ==
[~2025-08-07] VITALS: Ht 152.4 cm; Wt 77.0 kg
[2025-08-07] MEDS ORDERED: TRAMADOL HCL50 MG PO (08:52)
[2025-08-07] MEDS ORDERED: PENICILLIN V P500 MG PO (08:52)
[2025-08-07 08:58] VITALS: BP 119/91
== END 2025-08-07 09:00 | disposition home or self-care (01) ==
LOC: ED 08:20
DX: M27.62 Post-osseointegration biological failure of dental implant (principal); Z88.0 Allergy status to penicillin; J45.909 Unspecified asthma, uncomplicated
CPT/HCPCS: 99282

== ENCOUNTER 2025-08-31 18:51 | Emergency (ER) | payer OTHER ==
[~2025-08-31] VITALS: Ht 152.4 cm; Wt 71.3 kg
[~2025-08-31 18:51] MED LIST changes: +PENICILLIN V P500 MG PO; +TRAMADOL HCL50 MG PO
--- OUTSIDE RECORDS SUMMARY | 2025-08-31 18:57 | XMS ---
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 [facility] VISIT COUNT (12 MO.) [address] [place] [address] TOTAL 4 NOTE: Visits indicate total known visits. ED/UCC VISIT TRACKING (12 MO.) 08/31/2025 18:51 [facility] TYPE: Emergency COMPLAINT: - HEAD PAIN 08/07/2025 08:20 [facility] TYPE: Emergency COMPLAINT: - TOOTH PAIN DIAGNOSES: - Allergy status to penicillin - Other specified disorders of teeth and supporting structures - Post-osseointegration biological failure of dental implant - Unspecified asthma, uncomplicated 02/28/2025 05:58 [facility] TYPE: Emergency COMPLAINT: - SOB DIAGNOSES: - Allergy status to penicillin - Shortness of breath - Unspecified asthma with (acute) exacerbation 01/04/2025 13:32 [facility] TYPE: Emergency COMPLAINT: - ABD PAIN DIAGNOSES: - Allergy status to penicillin - 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
[2025-08-31] MEDS ORDERED: KETOROLAC TROMETHAMINE 30 MG/ML VIAL IV ONE (19:30)
[2025-08-31] MEDS ORDERED: SODIUM CHLORIDE 0.9% 1,000 ML IV SCH (19:30)
[2025-08-31] MEDS ORDERED: METOCLOPRAMIDE HCL 10 MG/2 ML SDV IV ONE (19:45)
[2025-08-31 20:17] VITALS: BP 119/84
== END 2025-08-31 20:15 | disposition home or self-care (01) ==
LOC: ED 18:51
DX: K08.89 Other specified disorders of teeth and supporting structures (principal); R51.9 Headache, unspecified; J45.909 Unspecified asthma, uncomplicated; Z88.0 Allergy status to penicillin
CPT/HCPCS: 96374; 96375; 99283-25; J1200; J1885; J2765; J7030

== ENCOUNTER 2025-09-25 12:11 | Emergency (ER) | payer OTHER | END 2025-09-25 14:41 | disposition home or self-care (01) | LOC: ED 12:11 | DX: J45.901 Unspecified asthma with (acute) exacerbation (principal); Z88.1 Allergy status to other antibiotic agents ==